=== PATIENT | female | born 1940 | race Caucasian/White ===

== ENCOUNTER 2020-10-30 13:59 | Outpatient (CLI) | payer MEDICARE, BC ==
[~2020-10-30 13:59] MED LIST: ALLO100T PO; ATEN50TA PO; LEVO50TA8 PO; LORA-258 PO; ZOLP10TA2 PO
[2020-10-30 14:53] LABS: BASOPHILS # (AUTO) 0.1 /CMM (0.0-0.2); EOSINOPHILS % (AUTO) 9.3 % (0.0-6.0); HEMATOCRIT 39 % (33-45); HEMOGLOBIN 12.9 g/dL (11.5-14.8); LYMPHOCYTES # (AUTO) 2.3 /CMM (0.8-4.8); LYMPHOCYTES % (AUTO) 23.2 % (20.0-44.0); MEAN CORPUSCULAR HGB CONC 33 g/dl (31.0-36.0); MEAN CORPUSCULAR VOLUME 89 fL (82-100); MONOCYTES # (AUTO) 0.8 /CMM (0.1-1.30); MONOCYTES % (AUTO) 8.6 % (2.0-12.0); NEUTROPHILS # (AUTO) 5.7 /CMM (1.8-8.9); NEUTROPHILS % (AUTO) 57.9 % (43.0-81.0); PLATELET COUNT (AUTO) 302 /CMM (150-450); RED BLOOD CELL COUNT(AUTO) 4.41 MIL/uL (4.0-5.2); WHITE BLOOD COUNT (AUTO) 9.9 K/uL (4.3-11.0)
[2020-10-30 15:05] LABS: ALANINE AMINOTRANSFERASE 18 U/L (12-78); ALBUMIN 3.9 g/dL (3.4-5.0); ALKALINE PHOSPHATASE 94 U/L (46-116); ASPARTATE AMINOTRANSFERASE 24 U/L (15-37); BILIRUBIN,TOTAL 0.4 mg/dL (0.2-1.0); CALCIUM, SERUM 8.7 mg/dL (8.5-10.1); CARBON DIOXIDE 25 mmol/L (21-32); CHLORIDE 105 mmol/L (98-107); CREATININE 2.3 mg/dL (0.6-1.3); GLUCOSE 105 mg/dL (74-106); SODIUM SERUM 142 mmol/L (136-145); TOTAL PROTEIN, SERUM 7.8 g/dL (6.4-8.2); UREA NITROGEN, BLOOD 30 mg/dL (7-18)
[2020-10-31 10:08] LABS: IMMUNOGLOBULIN A, SERUM 280 mg/dL (64-422); IMMUNOGLOBULIN G, SERUM 1118 mg/dL (586-1602); IMMUNOGLOBULIN M, SERUM 235 mg/dL (26-217)
== END 2020-10-30 23:59 | disposition home or self-care (01) ==
LOC: LAB 13:59
PROVIDERS: ATTEND Internal Medicine Hematology & Oncology
DX: D72.829 Elevated white blood cell count, unspecified (principal); D47.2 Monoclonal gammopathy
CPT/HCPCS: 36415; 80053-TC; 82232; 82784; 84155; 84165; 85025-TC; 86334

== ENCOUNTER 2020-11-03 11:07 | Outpatient (CLI) | payer MEDICARE, BC | END 2020-11-03 23:59 | disposition home or self-care (01) | LOC: CT 11:07 | PROVIDERS: ATTEND Internal Medicine Hematology & Oncology | DX: I25.10 Atherosclerotic heart disease of native coronary artery without angina pectoris (principal); R91.1 Solitary pulmonary nodule; I70.0 Atherosclerosis of aorta; N28.1 Cyst of kidney, acquired; F17.200 Nicotine dependence, unspecified, uncomplicated; M47.814 Spondylosis without myelopathy or radiculopathy, thoracic region | CPT/HCPCS: 71250-TC ==

== ENCOUNTER 2021-08-11 23:01 | Inpatient (IN) | payer MEDICARE, BC ==
[~2021-08-11] VITALS: Ht 154.9 cm; Wt 52.6 kg
[2021-08-11] MEDS ORDERED: ACETAMINOPHEN 325 MG TABLET ONE (23:34)
--- NOTE | 2021-08-11 23:35 | NUR ---
ASHER C/O GLF TRIPPED AND LANDED ON RIGHT SIDE. C/O HIP PAIN AND LEFT LEG PAIN. -KO. PT ABLE TO BARE WEIGHT AND NO SHORTENING OF LOWER EXTREMITIES. PT CHANGED INTO A GOWN AN NO GROSS TRAUMA NOTED. CERVICAL COLLAR APPLIED AND PLACED ON MONITOR AND PULSE OX.
--- NOTE | 2021-08-11 23:38 | NUR ---
PT TRANSPORTED TO CT SCAN VIA [facility]
[2021-08-12] MEDS ORDERED: ACETAMINOPHEN 325 MG TABLET PO ONE
--- NOTE | 2021-08-12 00:59 | NUR ---
CASTING AND CURING OPERATOR AT PT'S BEDSIDE
[2021-08-12] MEDS ORDERED: MORPHINE SULFATE INJ 2 MG/ML DISP.SYRIN IV ONE (01:00)
[2021-08-12] MEDS ORDERED: MORPHINE SULFATE INJ 2 MG/ML DISP.SYRIN ONE (01:19)
--- NOTE | 2021-08-12 01:20 | NUR ---
20G IV LINE ESTABLSIHED AT . BLOOD DRAWN AND SENT TO LAB.
--- NOTE | 2021-08-12 01:27 | NUR ---
COVID ANTIGEN SWAB COLLECTED AND SENT TO LAB
[2021-08-12] MEDS ORDERED: IV NS 0.9% 1,000 ML BAG IV ONE (01:30)
[2021-08-12 01:39] LABS: BASOPHILS # (AUTO) 0.1 K/uL (0.0-0.2); BASOPHILS % (AUTO) 0.7 % (0.0-2.0); EOSINOPHILS % (AUTO) 0.1 % (0.0-6.0); HEMATOCRIT 39 % (33-45); HEMOGLOBIN 12.8 g/dL (11.5-14.8); LYMPHOCYTES # (AUTO) 0.4 K/uL (0.8-4.8); LYMPHOCYTES % (AUTO) 2.1 % (20.0-44.0); MEAN CORPUSCULAR HGB CONC 33 g/dl (31.0-36.0); MEAN CORPUSCULAR VOLUME 89 fL (82-100); MONOCYTES # (AUTO) 1.2 K/uL (0.1-1.30); MONOCYTES % (AUTO) 6.2 % (2.0-12.0); NEUTROPHILS # (AUTO) 17.5 K/uL (1.8-8.9); NEUTROPHILS % (AUTO) 90.9 % (43.0-81.0); PLATELET COUNT (AUTO) 207 K/uL (150-450); RED BLOOD CELL COUNT(AUTO) 4.36 MIL/uL (4.0-5.2); WHITE BLOOD COUNT (AUTO) 19.3 K/uL (4.3-11.0)
--- NOTE | 2021-08-12 01:43 | NUR ---
ANGELITA HAUSER (SON)
[2021-08-12 01:53] LABS: CALCIUM, SERUM 9.3 mg/dL (8.5-10.1); CARBON DIOXIDE 18 mmol/L (21-32); CHLORIDE 99 mmol/L (98-107); CREATININE 3.5 mg/dL (0.6-1.3); GLUCOSE 118 mg/dL (74-106); POTASSIUM 3.9 mmol/L (3.5-5.1); SODIUM SERUM 133 mmol/L (136-145); UREA NITROGEN, BLOOD 43 mg/dL (7-18)
--- NOTE | 2021-08-12 02:06 | NUR ---
URINE COLLECTED AND SENT TO LAB
[2021-08-12 02:23] LABS: BILIRUBIN,URINE SMALL (NEGATIVE); COLOR,URINE YELLOW (YELLOW); LEUKOCYTE ESTERASE ,URINE NEGATIVE (NEGATIVE); NITRITE, URINE NEGATIVE (NEGATIVE); PROTEIN,URINE >=300 mg/dl (NEGATIVE); UGLUCOSE NEGATIVE (NEGATIVE); UROBILINOGEN,URINE 0.2 EU/dL (0.2)
--- NOTE | 2021-08-12 04:15 | NUR ---
[facility] PAGED
--- NOTE | 2021-08-12 04:21 | NUR ---
MOVE SHEET SUBMITTED
--- NOTE | 2021-08-12 04:36 | NUR ---
REPORT GIVEN TO ELISE
[2021-08-12 04:45] VITALS: BP 109/69
--- NOTE | 2021-08-12 04:45 | NUR ---
LICENSING AND REGISTRATION DIRECTOR NOTES: RECEIVED REPORT FROM [facility] ER NURSE. PT ADMITTED FROM ER UNDER SERVICE OF DR. CONCHA HERNANDEZ. DIAGNOSIS OF ACUTE LEFT HIP FRACTURE. PT AWAKE, ALERT/ORIENTED X4 AND VERBALLY RESPONSIVE. ON O2 2L/MIN VIA N/C, O2 SAT 96% AND PT TOLERATED WELL. IV ACCESS ON LT FOREARM#20G INTACT AND PATENT. NO S/S OF INFILTRATIONS. BODY ASSESSMENT DONE. NOTED REDNESS ON RT GROIN AREA AND SACRAL AREA. ALSO NOTED REDNESS ON BACK OF THE HEAD. NO OPEN SKIN NOTED. NO C/O PAIN OR DISCOMFORT. NO ACUTE DISTRESS. TYLENOL AND MORPHINE GIVEN AT THE ER. PROVIDED GOOD SKIN AND PERINEAL CARE. KEPT CLEAN, DRY AND COMFORTABLE. ALL SAFETY MEASURE IN PLACE. BED IN LOW POSITION AND LOCKED. BED ALARM ON. SIDE RAILS UP X2, PLACE CALL LIGHT WITH IN REACH. WILL CONTINUE TO MONITOR
--- NOTE | 2021-08-12 04:50 | NUR ---
PT TRANSPORTED TO ROOM 113 VIA [facility] WITHOUT INCIDENT.
--- NOTE | 2021-08-12 04:57 | NUR ---
[facility] ON PHONE CALL WITH LATOYA REYNOSO
[2021-08-12] MEDS ORDERED: ONDANSETRON HCL/PF 4 MG/2 ML VIAL IVP PRN (05:00)
[2021-08-12] MEDS ORDERED: Z GUARD REMEDY 4 OZ OINT TP PRN (05:00)
[2021-08-12] MEDS ORDERED: ACETAMINOPHEN 650 MG/SUPP.RECT RC PRN (05:00)
[2021-08-12] MEDS ORDERED: IV NS 0.9% 1,000 ML IV PRN (05:00)
--- NOTE | 2021-08-12 07:25 | NUR ---
ms rn received pt on bed, awake,alert,oriented x4,s/p fall w/ left hip fx, denies pain at this time, repositioned for comfort,all needs attended.
[2021-08-12 08:51] LABS: RBC,URINE 0-3 /HPF (0-2)
[2021-08-12 08:52] LABS: WBC,URINE 0-2 /HPF (0-3)
[2021-08-12 08:53] LABS: BACTERIA,URINE Rare /HPF (None Seen); SQUAMOUS EPITHELIAL CELL,UR None Seen /HPF (None Seen)
[2021-08-12] MEDS: ATENOLOL 50 MG TABLET PO SCH (09:00)
--- NOTE | 2021-08-12 09:10 | NUR ---
ms rn received from lab a high level procalcitonin, aware w/ orders.
--- NOTE | 2021-08-12 09:50 | NUR ---
ms cassia due meds given, started on atb iv.
[2021-08-12] MEDS: ALLOPURINOL 100 MG TABLET PO SCH (10:31)
[2021-08-12] MEDS: LEVOTHYROXINE SODIUM 50 MCG TABLET PO SCH (10:31)
[2021-08-12] MEDS: PANTOPRAZOLE 40 MG VIAL IV SCH (10:31)
[2021-08-12] MEDS ORDERED: MEPERIDINE25 MG SYR 25 MG/ML VIAL IV STA (10:40)
[2021-08-12] MEDS ORDERED: VANCOMYCIN HCL 1 GM in IV D5W 260 ML IV ONE (11:00)
--- NOTE | 2021-08-12 11:00 | NUR ---
ms rn was given tylenol but patient vomited, zofran iv given.
[2021-08-12] MEDS: IV LR 1000 ML 1,000 ML IV PRN (11:03)
[2021-08-12 12:00] VITALS: BP 91/58
[2021-08-12] MEDS ORDERED: CEFEPIME 2 GM in IV D5W 100 ML IV ONE (12:00)
--- NOTE | 2021-08-12 12:00 | NUR ---
ms cassia was seen by ortho w/ orders made and carried out.
--- NOTE | 2021-08-12 12:35 | NUR ---
ms antony was seen again by collinw/ emma.
[2021-08-12] MEDS: ACETAMINOPHEN 325 MG TABLET PO PRN ×2 (13:01→19:37)
[2021-08-12] MEDS: HEPARIN SODIUM, PORCINE 5000 UNITS/1 ML VIAL SQ SCH ×2 (13:07→21:43)
--- NOTE | 2021-08-12 13:20 | NUR ---
ms rn was seen by edwina polanco at this time.
--- NOTE | 2021-08-12 15:00 | NUR ---
ms rn 2 sons at bedside, was able to speak w/ collin aminta.
[2021-08-12 15:25] LABS: BAND % (MANUAL) 6 % (0.0-5.0); LYMPHOCYTES % (MANUAL) 6 % (16-48); MONOCYTES % (MANUAL) 5 % (0-11.0)
--- NOTE | 2021-08-12 15:40 | NUR ---
ms rn temp went down to 99 at this time, patient sleeping.
[2021-08-12 16:00] VITALS: BP 123/56
[2021-08-12 17:03] LABS: NEUTROPHILS % (MANUAL) 83 (42-76)
--- NOTE | 2021-08-12 17:30 | NUR ---
ms rn temp up again to 102, will give cooling measures, and tylenol.
--- NOTE | 2021-08-12 18:30 | NUR ---
ms rn on bed, no distress noted,all needs attended.
[2021-08-12] MEDS ORDERED: IBUPROFEN 400 MG TABLET PO PRN (19:00)
--- NOTE | 2021-08-12 19:48 | NUR ---
JOANA/RN PATIENT IS AWAKE, ALERT, AND ORIENTED, SHAKING NOTED, TEMP 103.0, TYLENOL 650 MG AND MOTRIN 1 TAB PO WERE GIVEN PER DAY SHIFT RN ROSINA'S ENDORSEMENT. COOLING MEASURES STARTED. FALL PRECAUTIONS PER PROTOCOL INSTITUTED. WILL MONITOR.
[2021-08-12 20:00] VITALS: BP 144/72
--- NOTE | 2021-08-12 23:14 | NUR ---
JOANA/TELE TEMP 98.2. INTERVENTION EFFECTIVE. WILL CONTINUE TO MONITOR TEMPERATURE.
[2021-08-13] MEDS: IV LR 1000 ML 1,000 ML IV PRN ×3 (00:42→21:42)
[2021-08-13] MEDS: ZOLPIDEM TARTRATE 10 MG TABLET PO PRN (01:41)
[2021-08-13 04:00] VITALS: BP 89/46
--- NOTE | 2021-08-13 04:40 | NUR ---
JOANA/RN AT 0430, BP 89/46, PATIENT IS ASYMPTOMATIC. ELEVATED FOOT OF BED, NOTIFIED LALITA KERN, PER CONCHA, RECHECK BP IN ONE HOUR. NO OTHER ORDER RECEIVED. WILL RECHECK BP IN ONE HOUR.
--- NOTE | 2021-08-13 06:06 | NUR ---
JOANA/RN BP 83/43, ASYMPTOMATIC, CONCHA HERNANDEZ NP, NOTIFIED, ORDER OF LR 500 MLS BOLUS WAS RECEIVED.
--- NOTE | 2021-08-13 06:22 | NUR ---
JOANA/RN LR 500 MLS BOLUS STARTED. WILL MONITOR.
[2021-08-13 06:25] LABS: BILIRUBIN,URINE NEGATIVE (NEGATIVE); COLOR,URINE YELLOW (YELLOW); LEUKOCYTE ESTERASE ,URINE NEGATIVE (NEGATIVE); NITRITE, URINE NEGATIVE (NEGATIVE); PROTEIN,URINE 100 mg/dl (NEGATIVE); UGLUCOSE NEGATIVE (NEGATIVE); UROBILINOGEN,URINE 0.2 EU/dL (0.2)
--- NOTE | 2021-08-13 06:28 | NUR ---
JOANA/RN PATIENT SLEEPING, EASILY AROUSABLE, APPEARS COMFORTABLE, NO DISTRESS NOTED, LR 500 MLS BOLUS INFUSING, CALL LIGHT IN REACH, WILL CONTINUE TO MONITOR.
[2021-08-13] MEDS ORDERED: IV LR 500 ML IV ONE (06:30)
[2021-08-13 06:51] LABS: CREATININE, URINE 102.1 MG/DL (30.0-125.0); URINE TOTAL PROTEIN 185.6 mg/dL (0-11.9)
[2021-08-13 06:53] LABS: BASOPHILS % (AUTO) 0.2 % (0.0-2.0); HEMATOCRIT 31 % (33-45); HEMOGLOBIN 10.1 g/dL (11.5-14.8); LYMPHOCYTES # (AUTO) 0.4 K/uL (0.8-4.8); MEAN CORPUSCULAR HGB CONC 33 g/dl (31.0-36.0); MEAN CORPUSCULAR VOLUME 91 fL (82-100); MONOCYTES # (AUTO) 0.9 K/uL (0.1-1.30); MONOCYTES % (AUTO) 6.3 % (2.0-12.0); NEUTROPHILS # (AUTO) 12.7 K/uL (1.8-8.9); NEUTROPHILS % (AUTO) 90.5 % (43.0-81.0); PLATELET COUNT (AUTO) 160 K/uL (150-450); RED BLOOD CELL COUNT(AUTO) 3.41 MIL/uL (4.0-5.2); WHITE BLOOD COUNT (AUTO) 14.1 K/uL (4.3-11.0)
--- NOTE | 2021-08-13 07:00 | NUR ---
JOANA/RN LR 500 MLS BOLUS FINISHED, BP 90/53. NO CHANGE IN CONDITION, ALL NEEDS ATTENDED AT THIS TIME, WILL CONTINUE TO MONITOR AND WILL ENDORSE.
[2021-08-13 07:02] VITALS: BP 90/57
[2021-08-13 07:13] LABS: ALANINE AMINOTRANSFERASE 22 U/L (12-78); ALBUMIN 2.1 g/dL (3.4-5.0); ALKALINE PHOSPHATASE 82 U/L (46-116); ASPARTATE AMINOTRANSFERASE 60 U/L (15-37); CALCIUM, SERUM 8.2 mg/dL (8.5-10.1); CARBON DIOXIDE 19 mmol/L (21-32); CHLORIDE 105 mmol/L (98-107); CREATININE 3.7 mg/dL (0.6-1.3); GLUCOSE 118 mg/dL (74-106); MAGNESIUM 1.7 mg/dL (1.8-2.4); PHOSPHORUS 5.4 mg/dL (2.5-4.9); POTASSIUM 3.6 mmol/L (3.5-5.1); SODIUM SERUM 135 mmol/L (136-145); UREA NITROGEN, BLOOD 54 mg/dL (7-18)
--- NOTE | 2021-08-13 07:30 | NUR ---
MS RN OPENING NOTES RECEIVED PATIENT ON BED AWAKE AND A/O X4. ON O2 AT 2LPM VIA NASAL CANNULA TOLERATING WELL. NO SOB NOTED. NOT IN DISTRESS. WITH NO COMPLAINTS OF PAIN OR DISCOMFORT AT THIS TIME. WITH IV ACCESS AT RIGHT FOREARM G22 WITH LR AT 100ML/HR INFUSING WELL. IV SITE IN PATENT AND INTACT. SAFETY MEASURES IN PLACED. CALL LIGHT WITHIN REACH. BED ON LOWEST LOCKED POSITION, SIDE RAILS UP X2. WILL CONTINUE TO MONITOR.
[2021-08-13] MEDS: ATENOLOL 50 MG TABLET PO SCH (08:00)
[2021-08-13] MEDS: ALLOPURINOL 100 MG TABLET PO SCH (08:01)
[2021-08-13] MEDS: PANTOPRAZOLE 40 MG VIAL IV SCH (08:01)
[2021-08-13] MEDS: LEVOTHYROXINE SODIUM 50 MCG TABLET PO SCH (08:01)
[2021-08-13] MEDS: HEPARIN SODIUM, PORCINE 5000 UNITS/1 ML VIAL SQ SCH ×2 (08:02→20:40)
[2021-08-13 09:23] LABS: BACTERIA,URINE Few /HPF (None Seen); RBC,URINE 0-2 /HPF (0-2); SQUAMOUS EPITHELIAL CELL,UR Few /HPF (None Seen); WBC,URINE 0-2 /HPF (0-3)
[2021-08-13] MEDS: Magnesium 1GM/D5W 100ML PREMIX 100 ML IV SCH ×2 (09:51→11:00)
[2021-08-13 09:54] LABS: EOSINOPHIL,URINE None Seen
[2021-08-13 10:02] LABS: THYROID STIMULATING HORMONE 1.251 uIU/mL (0.358-3.74)
[2021-08-13] MEDS ORDERED: VANCOMYCIN 500 MG in IV D5W 100 ML IV PRN (11:00)
[2021-08-13 12:00] VITALS: BP 84/49
[2021-08-13] MEDS: CEFEPIME 1 GM in IV D5W 50 ML IV SCH (12:09)
[2021-08-13] MEDS: VANCOMYCIN 500 MG in IV D5W 100 ML IV SCH (14:57)
[2021-08-13] MEDS: ENSURE ENLIVE 237 ML LIQUID (VANILLA) PO SCH (16:12)
--- NOTE | 2021-08-13 18:24 | NUR ---
MS RN CLOSING NOTES PATIENT ON BED AWAKE AND A/O X4. ON O2 AT 2LPM VIA NASAL CANNULA TOLERATING WELL. NO SOB NOTED. NOT IN DISTRESS. WITH NO COMPLAINTS OF PAIN OR DISCOMFORT AT THIS TIME. WITH IV ACCESS AT RIGHT FOREARM G22 WITH LR AT 100ML/HR INFUSING WELL. IV SITE IN PATENT AND INTACT. DUE MEDS GIVEN. SAFETY MEASURES IN PLACED. CALL LIGHT WITHIN REACH. BED ON LOWEST LOCKED POSITION, SIDE RAILS UP X2. WILL ENDORSE TO NEXT SHIFT FOR ANJANA.
[2021-08-13 20:00] VITALS: BP 106/51
[2021-08-13 21:00] VITALS: BP 84/49
[2021-08-14 04:00] VITALS: BP 120/65
[2021-08-14 06:38] LABS: BASOPHILS % (AUTO) 0.1 % (0.0-2.0); EOSINOPHILS % (AUTO) 0.1 % (0.0-6.0); HEMATOCRIT 32 % (33-45); HEMOGLOBIN 10.7 g/dL (11.5-14.8); LYMPHOCYTES # (AUTO) 0.4 K/uL (0.8-4.8); LYMPHOCYTES % (AUTO) 3.8 % (20.0-44.0); MEAN CORPUSCULAR HGB CONC 33 g/dl (31.0-36.0); MEAN CORPUSCULAR VOLUME 90 fL (82-100); MONOCYTES # (AUTO) 0.5 K/uL (0.1-1.30); MONOCYTES % (AUTO) 4.7 % (2.0-12.0); NEUTROPHILS # (AUTO) 10.5 K/uL (1.8-8.9); NEUTROPHILS % (AUTO) 91.3 % (43.0-81.0); PLATELET COUNT (AUTO) 182 K/uL (150-450); WHITE BLOOD COUNT (AUTO) 11.5 K/uL (4.3-11.0)
[2021-08-14 07:07] LABS: CALCIUM, SERUM 8.2 mg/dL (8.5-10.1); CARBON DIOXIDE 20 mmol/L (21-32); CHLORIDE 103 mmol/L (98-107); CREATININE 3.5 mg/dL (0.6-1.3); GLUCOSE 100 mg/dL (74-106); MAGNESIUM 2.4 mg/dL (1.8-2.4); PHOSPHORUS 3.3 mg/dL (2.5-4.9); POTASSIUM 3.3 mmol/L (3.5-5.1); SODIUM SERUM 135 mmol/L (136-145); UREA NITROGEN, BLOOD 50 mg/dL (7-18)
[2021-08-14 08:00] VITALS: BP 116/60
[2021-08-14] MEDS: LEVOTHYROXINE SODIUM 50 MCG TABLET PO SCH (09:05)
[2021-08-14] MEDS: PANTOPRAZOLE 40 MG TABLET.DR PO SCH (09:05)
[2021-08-14] MEDS: ALLOPURINOL 100 MG TABLET PO SCH (09:05)
[2021-08-14] MEDS: ATENOLOL 50 MG TABLET PO SCH (09:06)
[2021-08-14] MEDS: HEPARIN SODIUM, PORCINE 5000 UNITS/1 ML VIAL SQ SCH ×2 (09:08→21:29)
[2021-08-14] MEDS: ENSURE ENLIVE 237 ML LIQUID (VANILLA) PO SCH ×2 (09:16→17:46)
[2021-08-14] MEDS: IV LR 1000 ML 1,000 ML IV PRN (10:35)
[2021-08-14] MEDS: CEFEPIME 1 GM in IV D5W 50 ML IV SCH (11:49)
[2021-08-14 12:00] VITALS: BP 116/60
[2021-08-14] MEDS: ACETAMINOPHEN 325 MG TABLET PO PRN (15:21)
--- NOTE | 2021-08-14 18:02 | NUR ---
RN NOTE PATIENT RESTING ON BED. A/O X4. ON O2 AT 2LPM VIA NASAL CANNULA TOLERATING WELL. ACCESS AT RIGHT FOREARM G22 WITH IVF LR AT 100ML/HR INFUSING WELL. IV SITE IN PATENT AND INTACT. ALL DUE MEDS GIVEN. SAFETY MEASURES IN PLACED. NEEDS MET AND ATTENDED.
--- NOTE | 2021-08-14 19:10 | NUR ---
RN NOTES RECEIVED REPORT FROM MORNING RN PATIENT IN BED A/O X4 ABLE TO MAKE NEEDS KNOWN. WITH IV ACCESS R FA #[id number] PATENT FLUSHES WELL. WITH ONGOING IVF LR 100CC/HR. WITH OXYGEN INHALATION AT 2 LPM VIA NASAL CANULA TOLERATING WELL SATING 92% NO DESATURATION NOTED AT THIS TIME. ALL DUE MEDS GIVEN ORDERED. HOB ELEVATED. BED ON LOWEST POSITION AND LOCKED. CALL LIGHT WITHIN REACH. WILL CONTINUE TO MONITOR
[2021-08-14 20:00] VITALS: BP 100/52
[2021-08-15] MEDS: VANCOMYCIN 500 MG in IV D5W 100 ML IV SCH (03:06)
[2021-08-15] MEDS: IV LR 1000 ML 1,000 ML IV PRN ×2 (03:06→17:40)
[2021-08-15 04:00] VITALS: BP 124/68
[2021-08-15 06:06] LABS: BASOPHILS % (AUTO) 0.1 % (0.0-2.0); EOSINOPHILS % (AUTO) 0.7 % (0.0-6.0); HEMATOCRIT 30 % (33-45); LYMPHOCYTES # (AUTO) 0.4 K/uL (0.8-4.8); LYMPHOCYTES % (AUTO) 3.9 % (20.0-44.0); MEAN CORPUSCULAR HGB CONC 33 g/dl (31.0-36.0); MEAN CORPUSCULAR VOLUME 90 fL (82-100); MONOCYTES # (AUTO) 0.5 K/uL (0.1-1.30); MONOCYTES % (AUTO) 4.7 % (2.0-12.0); NEUTROPHILS # (AUTO) 9.6 K/uL (1.8-8.9); NEUTROPHILS % (AUTO) 90.6 % (43.0-81.0); PLATELET COUNT (AUTO) 194 K/uL (150-450); RED BLOOD CELL COUNT(AUTO) 3.36 MIL/uL (4.0-5.2); WHITE BLOOD COUNT (AUTO) 10.6 K/uL (4.3-11.0)
[2021-08-15 06:39] LABS: CALCIUM, SERUM 8.4 mg/dL (8.5-10.1); CARBON DIOXIDE 24 mmol/L (21-32); CHLORIDE 103 mmol/L (98-107); CREATININE 3.3 mg/dL (0.6-1.3); GLUCOSE 96 mg/dL (74-106); PHOSPHORUS 4.1 mg/dL (2.5-4.9); POTASSIUM 3.5 mmol/L (3.5-5.1); SODIUM SERUM 135 mmol/L (136-145); UREA NITROGEN, BLOOD 52 mg/dL (7-18)
--- NOTE | 2021-08-15 07:18 | NUR ---
RN NOTES PATIENT RESTING ON BED. A/O X4. ON O2 AT 2LPM VIA NASAL CANNULA TOLERATING WELL. ACCESS AT RIGHT FOREARM G22 WITH IVF LR AT 100ML/HR INFUSING WELL. IV SITE IN PATENT AND INTACT. ALL DUE MEDS GIVEN. SAFETY MEASURES IN PLACED. NEEDS MET AND ATTENDED.
--- NOTE | 2021-08-15 07:55 | NUR ---
RN NOTE PATIENT RECEIVED RESTING ON BED. A/O X4. ON O2 AT 2LPM VIA NASAL CANNULA TOLERATING WELL. ACCESS AT RIGHT FOREARM G22 WITH IVF LR AT 100ML/HR INFUSING WELL. IV SITE IN PATENT AND INTACT. ALL DUE MEDS GIVEN. SAFETY MEASURES IN PLACED. NEEDS MET AND ATTENDED.
[2021-08-15] MEDS: ALLOPURINOL 100 MG TABLET PO SCH (08:22)
[2021-08-15] MEDS: PANTOPRAZOLE 40 MG TABLET.DR PO SCH (08:22)
[2021-08-15] MEDS: LEVOTHYROXINE SODIUM 50 MCG TABLET PO SCH (08:22)
[2021-08-15] MEDS: ATENOLOL 50 MG TABLET PO SCH (08:23)
[2021-08-15] MEDS: HEPARIN SODIUM, PORCINE 5000 UNITS/1 ML VIAL SQ SCH ×2 (08:25→21:34)
[2021-08-15] MEDS: ENSURE ENLIVE 237 ML LIQUID (VANILLA) PO SCH ×2 (10:03→17:31)
[2021-08-15] MEDS: CEFEPIME 1 GM in IV D5W 50 ML IV SCH (11:55)
[2021-08-15 12:00] VITALS: BP 111/56
[2021-08-15 20:00] VITALS: BP 134/73
--- NOTE | 2021-08-15 20:05 | NUR ---
RN NOTE PATIENT RESTING ON BED. A/O X4. ON O2 AT 2LPM VIA NASAL CANNULA TOLERATING WELL. ACCESS AT L HAND G22 IN PLACE AND PATENT. ALEXYS MIDLINE G18 WITH IVF LR AT 100ML/HR INFUSING WELL. ALL DUE MEDS GIVEN. SAFETY MEASURES IN PLACED. NEEDS MET AND ATTENDED.
--- NOTE | 2021-08-15 20:29 | NUR ---
RN OPENING NOTES: RECEIVED PATIENT SLEEP IN BED COMFORTABLY, BED IN LOW POSITION, CALL LIGHTS WITHIN REACH, NO COMPLAIN OF PAIN AND DISCOMFORT AT THIS TIME, ON NASAL CANNULA AT 2LPM, PATIENT WITH IV LINE AT LEFT HAND #22 WITH ONGOING LR@100ML PER HOUR INFUSING WELL, PATIENT KEPT CLEAN AND DRY ALL NEEDS MET WILL CONTINUE TO MONITOR.
[2021-08-15] MEDS: ZOLPIDEM TARTRATE 10 MG TABLET PO PRN (21:35)
[2021-08-16 04:00] VITALS: BP 113/56
[2021-08-16 06:24] LABS: BASOPHILS % (AUTO) 0.1 % (0.0-2.0); EOSINOPHILS % (AUTO) 1.4 % (0.0-6.0); HEMATOCRIT 30 % (33-45); HEMOGLOBIN 9.9 g/dL (11.5-14.8); LYMPHOCYTES # (AUTO) 0.4 K/uL (0.8-4.8); LYMPHOCYTES % (AUTO) 4.3 % (20.0-44.0); MEAN CORPUSCULAR HGB CONC 33 g/dl (31.0-36.0); MEAN CORPUSCULAR VOLUME 90 fL (82-100); MONOCYTES # (AUTO) 0.8 K/uL (0.1-1.30); MONOCYTES % (AUTO) 9.1 % (2.0-12.0); NEUTROPHILS # (AUTO) 7.8 K/uL (1.8-8.9); NEUTROPHILS % (AUTO) 85.1 % (43.0-81.0); PLATELET COUNT (AUTO) 212 K/uL (150-450); RED BLOOD CELL COUNT(AUTO) 3.36 MIL/uL (4.0-5.2); WHITE BLOOD COUNT (AUTO) 9.2 K/uL (4.3-11.0)
--- NOTE | 2021-08-16 06:59 | NUR ---
MS RN CLOSING NOTES: PATIENT SLEEP IN BED COMFORTABLY AROUSABLE TO VERBAL STIMULI, BED IN LOW POSITION, CALL LIGHTS WITHIN REACH, NO COMPLAIN OF PAIN AND DISCOMFORT AT THIS TIME, A/OX3-4 ABLE TO MAKE NEEDS KNOWN, NO FEVER WAS OBSERVED THE WHOLE SHIFT, PATIENT KEPT CLEAN AND DRY ALL NEEDS MET ENDORSE TO INCOMING SHIFT.
[2021-08-16 07:36] LABS: CALCIUM, SERUM 8.2 mg/dL (8.5-10.1); CARBON DIOXIDE 21 mmol/L (21-32); CHLORIDE 106 mmol/L (98-107); CREATININE 2.9 mg/dL (0.6-1.3); GLUCOSE 87 mg/dL (74-106); MAGNESIUM 1.7 mg/dL (1.8-2.4); PHOSPHORUS 3.5 mg/dL (2.5-4.9); SODIUM SERUM 138 mmol/L (136-145); UREA NITROGEN, BLOOD 53 mg/dL (7-18)
--- NOTE | 2021-08-16 08:00 | NUR ---
patient recieved in room awake and alert oriented x4, resp unlabored no distress noted. hx of fall and left hip fx plan to have surgery when stable iv infusing well with no signs of redness or swelling noted will continue to assess and evaluate call light with in reach
[2021-08-16] MEDS: ATENOLOL 50 MG TABLET PO SCH (09:00)
[2021-08-16] MEDS: PANTOPRAZOLE 40 MG TABLET.DR PO SCH (09:29)
[2021-08-16] MEDS ORDERED: Magnesium 1GM/D5W 100ML PREMIX 100 ML IV SCH (09:30)
[2021-08-16] MEDS: ALLOPURINOL 100 MG TABLET PO SCH (09:30)
[2021-08-16] MEDS ORDERED: POTASSIUM CL. PREMIX PERIPHER. 50 ML IV SCH (09:30)
[2021-08-16] MEDS: LEVOTHYROXINE SODIUM 50 MCG TABLET PO SCH (09:30)
[2021-08-16] MEDS: HEPARIN SODIUM, PORCINE 5000 UNITS/1 ML VIAL SQ SCH ×2 (09:40→20:51)
[2021-08-16] MEDS: ENSURE ENLIVE 237 ML LIQUID (VANILLA) PO SCH ×2 (09:41→16:39)
[2021-08-16] MEDS ORDERED: MAGNESIUM OXIDE 400 MG TABLET PO ONE (10:00)
[2021-08-16] MEDS ORDERED: POTASSIUM CHLORIDE 20 MEQ TAB.PRT.SR PO ONE (10:00)
[2021-08-16 12:00] VITALS: BP 136/59
[2021-08-16] MEDS: IV LR 1000 ML 1,000 ML IV PRN (12:04)
[2021-08-16] MEDS: CEFEPIME 1 GM in IV D5W 50 ML IV SCH (12:25)
[2021-08-16] MEDS ORDERED: VANCOMYCIN 500 MG in IV D5W 100 ML IV SCH (17:00)
--- NOTE | 2021-08-16 19:10 | NUR ---
RN OPENING NOTES RECEIVED PATIENT ON BED, AWAKE, A/O X 4, ON NASAL CANULA @ 2LPM, RESPIRATORY EVEN AND UNLABORED, REMAIN AFEBRILE, NO S/S OF DISTRESS NOTED. PATIENT NOTED WITH ALEXYS MID LINE, LEFT HAND #22 PERIPHERAL LINE, INTACT IN PLACED, FLUSHED WITH NS. NO INFILTRATION NOTED AT SITE. RUNNING WITH LR 1L @ 100 ML/HR. ALL SAFETY PRECAUTION PROVIDED, BED IN LOWEST POSITION, LOCKED. CONTINUE TO MONITOR.
--- NOTE | 2021-08-16 19:21 | NUR ---
CHANGE OF SHIFT REPORT PT RESTING COMFORTABLY IN BED. NO S/S OR C/O PAIN OR DISTRESS NOTED. SIDE RAILS UP X2, CALL LIGHT LEFT WITHIN REACH. PT KEPT CLEAN, DRY, AND COMFORTABLE. REPORT GIVEN TO GARRICK LEAVITT.
[2021-08-16 20:00] VITALS: BP 130/85
[2021-08-16] MEDS: ZOLPIDEM TARTRATE 10 MG TABLET PO PRN (21:08)
[2021-08-17] MEDS: IV LR 1000 ML 1,000 ML IV PRN ×2 (00:19→11:44)
[2021-08-17 04:00] VITALS: BP 126/66
[2021-08-17 07:08] LABS: BASOPHILS % (AUTO) 0.2 % (0.0-2.0); HEMATOCRIT 30 % (33-45); HEMOGLOBIN 9.9 g/dL (11.5-14.8); LYMPHOCYTES # (AUTO) 0.5 K/uL (0.8-4.8); LYMPHOCYTES % (AUTO) 3.4 % (20.0-44.0); MEAN CORPUSCULAR HGB CONC 33 g/dl (31.0-36.0); MEAN CORPUSCULAR VOLUME 89 fL (82-100); MONOCYTES # (AUTO) 1.3 K/uL (0.1-1.30); NEUTROPHILS # (AUTO) 11.7 K/uL (1.8-8.9); NEUTROPHILS % (AUTO) 83.4 % (43.0-81.0); PLATELET COUNT (AUTO) 256 K/uL (150-450); RED BLOOD CELL COUNT(AUTO) 3.36 MIL/uL (4.0-5.2)
--- NOTE | 2021-08-17 07:18 | NUR ---
RN CLOSING NOTES PATIENT REMAIN STABLE THROUGH OUT THE SHIFT, RESPIRATORY EVEN AND UNLABORED, REMAIN AFEBRILE, NO S/S OF DISTRESS NOTED. RUNNING WITH LR 1L @ 100 ML/HR. ALL DUE MEDS GIVEN ORDERED. ALL SAFETY PRECAUTION PROVIDED, BED IN LOWEST POSITION, LOCKED. CONTINUE TO MONITOR.
[2021-08-17 07:29] LABS: CALCIUM, SERUM 8.1 mg/dL (8.5-10.1); CARBON DIOXIDE 22 mmol/L (21-32); CHLORIDE 106 mmol/L (98-107); CREATININE 2.6 mg/dL (0.6-1.3); GLUCOSE 95 mg/dL (74-106); MAGNESIUM 1.6 mg/dL (1.8-2.4); POTASSIUM 3.1 mmol/L (3.5-5.1); SODIUM SERUM 138 mmol/L (136-145); UREA NITROGEN, BLOOD 43 mg/dL (7-18)
--- NOTE | 2021-08-17 07:30 | NUR ---
RN OPENING NOTES RECEIVED PATIENT IN BED ALERT VERBALLY RESPONSIVE. NOT IN DISTRESS NO COMPLAINTS OF PAIN NOTED. O2 @ 2LPM VIA NC SATING 95%. IV SITE ALEXYS MIDLINE AND L HAND #22 PATENT AND INTACT. BED TO LOWEST POSITION AND LOCKED. CALL LIGHT WITHIN REACH.
[2021-08-17] MEDS: PANTOPRAZOLE 40 MG TABLET.DR PO SCH (08:34)
[2021-08-17] MEDS: LEVOTHYROXINE SODIUM 50 MCG TABLET PO SCH (08:34)
[2021-08-17] MEDS: ALLOPURINOL 100 MG TABLET PO SCH (08:34)
[2021-08-17] MEDS: ENSURE ENLIVE 237 ML LIQUID (VANILLA) PO SCH ×2 (08:34→16:12)
[2021-08-17] MEDS: ATENOLOL 50 MG TABLET PO SCH (08:45)
[2021-08-17] MEDS: HEPARIN SODIUM, PORCINE 5000 UNITS/1 ML VIAL SQ SCH ×2 (08:45→20:58)
[2021-08-17] MEDS: POTASSIUM CHLORIDE 20 MEQ TAB.PRT.SR PO SCH ×3 (10:06→12:48)
[2021-08-17] MEDS: Magnesium 1GM/D5W 100ML PREMIX 100 ML IV SCH ×2 (10:07→11:43)
[2021-08-17] MEDS: CEFEPIME 1 GM in IV D5W 50 ML IV SCH (12:48)
[2021-08-17 13:05] LABS: BAND % (MANUAL) 1 % (0.0-5.0); EOSINOPHILS % (MANUAL) 4 % (0-4); LYMPHOCYTES % (MANUAL) 3 % (16-48); MONOCYTES % (MANUAL) 14 % (0-11.0); NEUTROPHILS % (MANUAL) 78 (42-76)
--- NOTE | 2021-08-17 18:25 | NUR ---
RN CLOSING NOTES PATIENT IN BED. VERBALLY RESPONSIVE. NOT IN DISTRESS NO COMPLAINTS OF PAIN NOTED. PATIENT PLANNED FOR HIP SURGERY TOMORROW 07, CONSENT ON CHART. NPO AFTER 2330. TO HOLD ANTICOAGULANT MORNING OF SURGERY. BED TO LOWEST POSITION AND LOCKED. CALL LIGHT WITHIN REACH. NEEDS ATTENDED. WILL ENDORSE TO ENVIRONMENTAL ENGINEERING AIDE RN ON DUTY.
[2021-08-17 20:00] VITALS: BP 144/68
[2021-08-17] MEDS: ZOLPIDEM TARTRATE 10 MG TABLET PO PRN (20:59)
--- NOTE | 2021-08-17 23:30 | NUR ---
RN NOTES PATIENT START ON NPO.
[2021-08-18] VITALS (14 sets, daily range): BP systolic 120–150; BP diastolic 56–81
[2021-08-18] MEDS: IV LR 1000 ML 1,000 ML IV PRN ×3 (00:56→20:05)
[2021-08-18] MEDS ORDERED: POLYMYXIN B SULFATE 500,000 UNITS ONE (06:45)
[2021-08-18] MEDS ORDERED: BUPIVACAINE 0.5 % PF 150 MG/30 ML VIAL ONE (06:45)
--- NOTE | 2021-08-18 07:09 | NUR ---
RN CLOSING NOTES PATIENT REMAIN STABLE THROUGH OUT THE SHIFT, RESPIRATORY EVEN AND UNLABORED, REMAIN AFEBRILE, NO S/S OF DISTRESS NOTED. REMAIN NPO FOR SCHEDULED PROCEDURE. RUNNING WITH LR 1L @ 100 ML/HR. ALL DUE MEDS GIVEN ORDERED. ALL SAFETY PRECAUTION PROVIDED, BED IN LOWEST POSITION, LOCKED. CONTINUE TO MONITOR.
[2021-08-18] MEDS ORDERED: ROCURONIUM BROMIDE 50 MG/5 ML ONE (07:27)
[2021-08-18] MEDS ORDERED: HYDROMORPHONE INJ 2 MG/ML DISP.SYRIN ONE (07:27)
[2021-08-18] MEDS: LEVOTHYROXINE SODIUM 50 MCG TABLET PO SCH (07:30)
[2021-08-18] MEDS: PANTOPRAZOLE 40 MG TABLET.DR PO SCH (07:30)
[2021-08-18 07:33] LABS: CALCIUM, SERUM 8.1 mg/dL (8.5-10.1); CARBON DIOXIDE 21 mmol/L (21-32); CHLORIDE 107 mmol/L (98-107); CREATININE 2.2 mg/dL (0.6-1.3); GLUCOSE 85 mg/dL (74-106); POTASSIUM 3.9 mmol/L (3.5-5.1); SODIUM SERUM 137 mmol/L (136-145); UREA NITROGEN, BLOOD 34 mg/dL (7-18)
[2021-08-18] MEDS: ENSURE ENLIVE 237 ML LIQUID (VANILLA) PO SCH ×2 (08:00→17:00)
[2021-08-18] MEDS: ATENOLOL 50 MG TABLET PO SCH (08:00)
[2021-08-18] MEDS ORDERED: TRANEXAMIC ACID 3,000 MG in SODIUM CHLORIDE IRRIG SOLUTION 70 ML IR ONE (08:30)
[2021-08-18] MEDS: ALLOPURINOL 100 MG TABLET PO SCH (09:00)
[2021-08-18] MEDS ORDERED: ALBUTEROL FS 2.5 MG/3 ML VIAL.NEB ONE ×2 (09:05→09:23)
[2021-08-18] MEDS ORDERED: FUROSEMIDE 20 MG/2 ML VIAL ONE (09:23)
[2021-08-18 09:39] LABS: HEMOGLOBIN 10.8 g/dL (11.5-14.8)
--- NOTE | 2021-08-18 10:04 | NUR ---
RN NOTES PATIENT STILL IN RECOVERY ROOM. WILL MONITOR PATIENT AND GIVE MEDS ONCE PATIENT COMES BACK TO THE ROOM.
--- NOTE | 2021-08-18 10:10 | NUR ---
RN NOTE PT BIB OR TEAM, RN CALLED AND GAVE REPORT PRIOR TO ARRIVAL. PT WAS ON 15L O2 NRB AND PROMPTLY SWITCHED TO BI-PAP. ONCE IMPLEMENTED, PT SPO2 INCREASED FROM 70% TO 95%. PT IS LETHARGIC, STIRRING TO PAINFUL STIMULI. L UA ML IS PATIENT AND INTACT. RIOS CATH BELOW PT DRAINING BY GRAVITY. RN WILL MONITOR AND TREAT THROUGHOUT SHIFT. SAFETY MEASURES IN PLACE, BED LOCKED AND IN LOWEST POSITION, SIDE RAILS UPX2, CALL LIGHT WITHIN REACH, PT BED ALARM ARMED.
--- NOTE | 2021-08-18 10:20 | NUR ---
NURSES NOTES PO RX WAS HELD PRIOR TO SX DUE TO NPO STATUS. PT IS CURRENTLY ON BIPAP AND UNSTABLE
[2021-08-18] MEDS ORDERED: DOCUSATE SODIUM 250 MG CAPSULE PO PRN (10:30)
[2021-08-18] MEDS ORDERED: BISACODYL SUPP (10 MG) 10 MG/SUPP.RECT SUPP.RECT RC PRN (10:30)
[2021-08-18] MEDS ORDERED: ACETAMINOPHEN 325 MG TABLET PO PRN (10:30)
[2021-08-18] MEDS ORDERED: ONDANSETRON HCL/PF 4 MG/2 ML VIAL IVP PRN (10:30)
[2021-08-18] MEDS ORDERED: SENNOSIDES 8.6 MG TABLET PO PRN (10:30)
--- NOTE | 2021-08-18 10:37 | NUR ---
PT RECEIVED FROM OR PLACED INTO BIPAP TO SUPPORT HER BREATHING. BIPAP PARAMETERS BELOW PER DR. GARCIA: IPAP 15 EPAP 5 RATE 12 FIO2 100% BIPAP MACHINE IS PLUGGED INTO RED OUTLET WITH ALARMS ON AND FUNCTIONING. BVM @ BEDSIDE. Addendum: 08/18/21 at 1043 by ETIENNE TOUSSAINT RT Amended: Links added.
[2021-08-18] MEDS ORDERED: ENOXAPARIN SODIUM 30 MG/0.3 ML DISP.SYRIN SQ SCH (12:00)
[2021-08-18 12:07] LABS: ABG BASE EXCESS -7.8 mmol/L; ABG OXYGEN SATURATION 98.2 % (92.0-98.5); ABG PCO2 23.1 mmHg (35.0-45.0); ABG PH 7.426 (7.350-7.450); ABG PO2 123.4 mmHg (75.0-100.0); AaDO2 566.5 mmHg; COHb 0.3 % (0.5-1.5); MetHb 0.2 % (0.0-1.5); O2Hb 97.7 % (94.0-97.0); SITE, ABG Left Radial
[2021-08-18] MEDS: MORPHINE SULFATE INJ 2 MG/ML DISP.SYRIN IV PRN ×3 (12:17→22:56)
--- NOTE | 2021-08-18 12:23 | NUR ---
pt. is more awake and follow commands, placed into simple mask @ 6 lpm o2 flow. spo2 98% hr 70 bpm rr 24 bpm Addendum: 08/18/21 at 1225 by ETIENNE TOUSSAINT RT Amended: Links added.
[2021-08-18] MEDS: CEFEPIME 1 GM in IV D5W 50 ML IV SCH (12:24)
--- NOTE | 2021-08-18 13:40 | NUR ---
RN NOTE US GUIDED THORACENTESIS COMPLETE. 550 ML DRAWN.
[2021-08-18] MEDS: NYSTATIN CREAM 15 GM TUBE TP SCH ×2 (16:35→17:26)
[2021-08-18] MEDS: ANCEF 1 GM/50 ML D5W IV SCH ×4 (16:35→23:24)
--- NOTE | 2021-08-18 19:05 | NUR ---
RECEIVED PT ON BED LITTLE DROWSY BUT SHE OPEN EYES AND ANSWER QUESTIONS, A/O X3-4 NO PAIN COMPLAINT AT THIS TIME S/P LEFT HIP ORIF 08/18, S/P THORACENTESIS 550ML OUT 08/18 TELE MONITOR READS SINUS RHYTHM 60-70, ON O2 3L SPO2 98% NO SOB NOTED, HAVE ALEXYS ML WITH ONGOING LR @ 100ML/HR INFUSING WELL, HAVE RIOS ON PLACE WITH DRAINING YELLOW URINE, BED ON LOWEST POSITION AND LOCKED SIDE RAILS UP X2 CALL LIGHT WITHIN REACH WILL CONT TO MONITOR
--- NOTE | 2021-08-18 19:10 | NUR ---
RN NOTES PT FOUND SEMI FOWLERS DISPLAYING NO S/S OF DISTRESS, PT ENDORSES NO PAIN AND IS BREATHING EVEN AND UNLABORED ON 3L O2 NC. SOME ELEMENTS OF CONFUSION SETTING IN, PT ASKING QUESTIONS RN ANSWERED JUST AN HOUR PRIOR. L UA MIDLINE IS PATIENT AND INTACT. RIOS CATH BELOW PATIENT DRAINING BY GRAVITY. L HIP SX SITE IS CLEAN AND DRY. SBAR AND REPORT GIVEN TO MECHANICAL REPAIR WORKER RN, ALL QUESTIONS ANSWERED. SAFETY MEASURES IN PLACE, BED LOCKED AND IN LOWEST POSITION, SIDE RAILS UPX2, CALL LIGHT WITHIN REACH, PT INSTRUCTED TO CALL FOR ASSISTANCE, BED ALARM ARMED. PT ENDORSED IN STABLE CONDITION FOR ANJANA.
[2021-08-18] MEDS: ENOXAPARIN SODIUM 30 MG/0.3 ML DISP.SYRIN SQ SCH (20:31)
--- NOTE | 2021-08-18 21:49 | NUR ---
PT REQUESTED SOME SLEEPING PILLS, INFORMED HOSPITALIST ZULY WINN AND INFORMED HER THAT AMBIEN WAS DC BY LOCKSTITCH TUNNEL ELASTIC OPERATOR DUE TO PT WAS SO LETHARGIC AND HAVE A RESPIRATORY DISTRESS AFTER THE ORIF OF LEFT HIP PROCEDURE, ZULY WINN DO ORDER BENADRYL 25MG PO X1 NOW, OFFERED IT TO PT BUT PT REFUSED TO TAKE THE MEDICATION, MADE AWARE
[2021-08-18] MEDS ORDERED: diphenhydrAMINE HCL 25 MG CAPSULE PO ONE (22:00)
[2021-08-19] VITALS (16 sets, daily range): BP systolic 127–150; BP diastolic 52–91
[2021-08-19] MEDS: MORPHINE SULFATE INJ 2 MG/ML DISP.SYRIN IV PRN ×2 (04:12→17:05)
[2021-08-19 04:14] LABS: BASOPHILS # (AUTO) 0.1 K/uL (0.0-0.2); BASOPHILS % (AUTO) 0.3 % (0.0-2.0); EOSINOPHILS % (AUTO) 0.1 % (0.0-6.0); HEMATOCRIT 32 % (33-45); HEMOGLOBIN 10.1 g/dL (11.5-14.8); LYMPHOCYTES # (AUTO) 0.5 K/uL (0.8-4.8); LYMPHOCYTES % (AUTO) 1.6 % (20.0-44.0); MEAN CORPUSCULAR HGB CONC 32 g/dl (31.0-36.0); MEAN CORPUSCULAR VOLUME 90 fL (82-100); MONOCYTES # (AUTO) 1.2 K/uL (0.1-1.30); MONOCYTES % (AUTO) 3.8 % (2.0-12.0); NEUTROPHILS % (AUTO) 94.2 % (43.0-81.0); PLATELET COUNT (AUTO) 371 K/uL (150-450); RED BLOOD CELL COUNT(AUTO) 3.55 MIL/uL (4.0-5.2)
[2021-08-19 04:35] LABS: WHITE BLOOD COUNT (AUTO) 31.8 K/uL (4.3-11.0)
[2021-08-19 04:57] LABS: ALANINE AMINOTRANSFERASE 50 U/L (12-78); ALBUMIN 1.8 g/dL (3.4-5.0); ALKALINE PHOSPHATASE 355 U/L (46-116); ASPARTATE AMINOTRANSFERASE 59 U/L (15-37); BILIRUBIN,TOTAL 0.5 mg/dL (0.2-1.0); CALCIUM, SERUM 8.2 mg/dL (8.5-10.1); CARBON DIOXIDE 23 mmol/L (21-32); CHLORIDE 105 mmol/L (98-107); CREATININE 2.7 mg/dL (0.6-1.3); GLUCOSE 105 mg/dL (74-106); POTASSIUM 3.9 mmol/L (3.5-5.1); SODIUM SERUM 139 mmol/L (136-145); TOTAL PROTEIN, SERUM 5.9 g/dL (6.4-8.2); UREA NITROGEN, BLOOD 39 mg/dL (7-18)
[2021-08-19 05:32] LABS: BAND % (MANUAL) 1 % (0.0-5.0); LYMPHOCYTES % (MANUAL) 3 % (16-48); MONOCYTES % (MANUAL) 3 % (0-11.0); NEUTROPHILS % (MANUAL) 93 (42-76)
[2021-08-19] MEDS: IV LR 1000 ML 1,000 ML IV PRN ×2 (06:01→17:06)
--- NOTE | 2021-08-19 06:48 | NUR ---
PT RESTING ON BED EYES CLOSE, BUT SHES SAYING THAT SHE DOES NOT SLEEP THE WHOLE NIGHT DUE TO LACK OF SLEEPING MEDICATION, STILL ON O2 2L VIA NC SPO2 96% TELE MONITOR READS SINUS RHYTHM 70'S PT IS STABLE THE WHOLE NIGHT PAIN MEDICATION WAS GIVEN PER PT REQUEST DUE TO PAIN, BED ON LOWEST POSITION AND LOCKED SIDE RAILS UP X2 CALL LIGHT WITHIN REACH WILL CONT TO MONITOR
--- NOTE | 2021-08-19 07:15 | NUR ---
RN NOTES PT FOUND SEMI FOWLERS DISPLAYING NO S/S OF DISTRESS, PT ENDORSES NO PAIN AND IS BREATHING EVEN AND UNLABORED ON 3L O2 NC. L UA MIDLINE IS PATIENT AND INTACT. RIOS CATH BELOW PATIENT DRAINING BY GRAVITY. L HIP SX SITE IS CLEAN AND DRY. VSS, RN WILL MONITOR AND TREAT THROUGHOUT SHIFT. SAFETY MEASURES IN PLACE, BED LOCKED AND IN LOWEST POSITION, SIDE RAILS UPX2, CALL LIGHT WITHIN REACH, PT INSTRUCTED TO CALL FOR ASSISTANCE, BED ALARM ARMED.
[2021-08-19] MEDS: ENSURE ENLIVE 237 ML LIQUID (VANILLA) PO SCH ×2 (07:44→17:18)
[2021-08-19] MEDS: ALLOPURINOL 100 MG TABLET PO SCH (08:05)
[2021-08-19] MEDS: ATENOLOL 50 MG TABLET PO SCH (08:05)
[2021-08-19] MEDS: LEVOTHYROXINE SODIUM 50 MCG TABLET PO SCH (08:05)
[2021-08-19] MEDS: PANTOPRAZOLE 40 MG TABLET.DR PO SCH (08:05)
[2021-08-19] MEDS: NYSTATIN CREAM 15 GM TUBE TP SCH ×2 (08:05→17:18)
--- NOTE | 2021-08-19 10:00 | NUR ---
MD VISIT DR. SANTAMARIA VISITED PT, PERFORMED ASSESSMENT, RECOMMENDED DOWNGRADE LONG PT IS CLEARED BY PULMONOLOGY. MD GAVE ORDERS: AMBIEN 5MG PO HS. RN ACKNOWLEDGED AND WILL ENTER DIRECTED.
--- NOTE | 2021-08-19 10:20 | NUR ---
CRITICAL LAB LAB REPORTED TROPONIN VALUE OF 236, RN INFORMED DR ROMERO. GAVE ORDERS, TROPONIN LAB IN AM. RN ACKNOWLEDGED AND WILL ENTER ORDERS DIRECTED.
[2021-08-19] MEDS ORDERED: ZOLPIDEM TARTRATE 5 MG TABLET PO PRN (10:30)
[2021-08-19] MEDS: CEFEPIME 1 GM in IV D5W 50 ML IV SCH (11:14)
--- NOTE | 2021-08-19 11:30 | NUR ---
TRANSFER RN CALLED AND GAVE REPORT TO TREE BARGER. PT WAS TRANSPORTED TO ROOM 307-2 ACCOMPANIED BY CN AND PRIMARY. PT WAS ON PORTABLE BEDSIDE MONITOR FOR TRANSPORT WELL 2L O2 NC PORTABLE OXYGEN TANK. PT IS A&OX4, C/O NO PAIN. NO COMPLICATIONS DURING TRANSPORT. BELONGINGS CHECKED AND REVIEWED, GIVEN TO RECEIVING RN. PT ENDORSED IN STABLE CONDITION FOR ANJANA. SBAR AND CHART GIVEN.
--- NOTE | 2021-08-19 11:45 | NUR ---
RN NOTE PATIENT WAS TRANSFERRED TO UNIT FROM ICU, GOT REPORT FROM ANGELITA, PATIENT IS AWAKE IN BED RESTING, A/O X4. NO S/S OF PAIN NOTED AT THIS TIME. ON 2L OXYGEN VIA NC, NO DISTRESS OR SHORTNESS OF BREATH NOTED. IV ACCESS ALEXYS MIDLINE WITH LR AT 100ML/HR, INTACT, PATENT AND FLUSHING WELL. PATIENT ON EXTERNAL KILN REMOVER WITH CURRENT READING OF SR AND HR OF 64, NO CARDIAC DISTRESS NOTED. PATIENT HAVE RIOS CATHETER, IN PLACED AND DRAINING WELL. ORIENTED PATIENT TO ROOM SET UP AND SHOWED HER HOW TO USE THE CALL LIGHT. WILL CONTINUE TO MONITOR.
--- NOTE | 2021-08-19 18:45 | NUR ---
RN CLOSING NOTE PATIENT IS AWAKE IN BED RESTING, A/O X4. NO S/S OF PAIN NOTED AT THIS TIME. PAIN MEDICATION LAST GIVEN AT 1705, MORPHINE. ON 2L OXYGEN VIA NC, NO DISTRESS OR SHORTNESS OF BREATH NOTED. IV ACCESS ALEXYS MIDLINE WITH LR AT 100ML/HR, INTACT, PATENT AND FLUSHING WELL. PATIENT ON EXTERNAL PHARMACOVIGILANCE SAFETY EXPERT WITH CURRENT READING OF SR AND HR OF 62, NO CARDIAC DISTRESS NOTED. PATIENT HAVE RIOS CATHETER, IN PLACED AND DRAINING WELL, OUTPUT OF 1000 ML. FALL AND SAFETY MEASURES IN PLACE, BED ALARM ON, BED IN LOW AND LOCK POSITION, CALL LIGHT AND TABLE WITHIN EASY REACH, SIDE RAIL UP X2. WILL ENDORSE TO HAND SANDER NURSE.
--- NOTE | 2021-08-19 19:30 | NUR ---
RN NOTES RECEIVED PATIENT AWAKE ON BED, A/OX3,TALKING TO HER SON OVER THE PHONE, SR ON TELE MONITOR HR-74, F/C DRAINING CLEAR YELLOW URINE, S/P LEFT HIP HEMIARTHROPLASTY LAST 08/18 , DRESSING DRY AND INTACT, NO PAIN NOTED, CALL LIGHT WITHIN REACH, SIDERAILSUPX2, WILL CONTINUE TO MONITOR
--- NOTE | 2021-08-19 21:10 | NUR ---
RN NOTES PATIENT'S SON (DUARTE) TALKED TO ME OVER THE PHONE AND WAS CONCERN THAT THERE MOTHER WAS TELLING SOME STRANGE THINGS, I EXPLAINED TO THE PATIENT'S SONS THAT SINCE THIS IS THE FIRST TIME THAT I'M GOING TO TAKE CARE OF THEIR MOTHER I WILL ASSESS THE PATIENT BUT I NOTICED THAT WHEN I MAKE MY ROUNDS I NOTICED THAT PATIENT'S HAS PERIOD OF CONFUSION. PATIENT IS LEGALLY BLIND AND LIVES ALONE THAT'S WHY THEY ARE CONCERN ABOUT PATIENT HAVING PERIOD OF CONFUSION. PATIENT'S SON ALSO SPOKE TO THE CHARGE NURSE WELL.
[2021-08-19] MEDS: ENOXAPARIN SODIUM 30 MG/0.3 ML DISP.SYRIN SQ SCH (21:25)
--- NOTE | 2021-08-19 22:00 | NUR ---
RN NOTES AMBIEN 5MG PO GIVEN PER PATIENT REQUEST WELL THE FAMILY, PATIENT REFUSED TO BE TURN , EXOPLAINED THE IMPORTANCE OF TURNING BUT PATIENT IS REFUSING
[2021-08-20] VITALS: BP_SYST 125; BP_DIAS 86; BP_DIAS 96
[2021-08-20] MEDS: IV LR 1000 ML 1,000 ML IV PRN ×2 (03:01→17:19)
[2021-08-20 04:14] VITALS: BP 160/63
--- NOTE | 2021-08-20 06:49 | NUR ---
RN NOTES AWAKE, MORNING CARE RENDERED, DENIES PAIN, NO SOB, PATIENT MOVED IN THE MIDDLE, MORNING CARE RENDERED, CALL LIGHT WITHIN REACH, SIDERAILSUPX2, PT. NEEDS ATTENDED
[2021-08-20 07:03] LABS: BASOPHILS # (AUTO) 0.1 K/uL (0.0-0.2); BASOPHILS % (AUTO) 0.2 % (0.0-2.0); HEMATOCRIT 30 % (33-45); HEMOGLOBIN 9.5 g/dL (11.5-14.8); LYMPHOCYTES # (AUTO) 0.9 K/uL (0.8-4.8); LYMPHOCYTES % (AUTO) 2.9 % (20.0-44.0); MEAN CORPUSCULAR HGB CONC 31 g/dl (31.0-36.0); MEAN CORPUSCULAR VOLUME 90 fL (82-100); MONOCYTES # (AUTO) 1.2 K/uL (0.1-1.30); MONOCYTES % (AUTO) 4.1 % (2.0-12.0); NEUTROPHILS # (AUTO) 27.8 K/uL (1.8-8.9); NEUTROPHILS % (AUTO) 91.8 % (43.0-81.0); PLATELET COUNT (AUTO) 453 K/uL (150-450); RED BLOOD CELL COUNT(AUTO) 3.36 MIL/uL (4.0-5.2)
[2021-08-20 07:33] LABS: CALCIUM, SERUM 8.7 mg/dL (8.5-10.1); CARBON DIOXIDE 24 mmol/L (21-32); CHLORIDE 103 mmol/L (98-107); CREATININE 2.5 mg/dL (0.6-1.3); GLUCOSE 66 mg/dL (74-106); POTASSIUM 3.3 mmol/L (3.5-5.1); SODIUM SERUM 138 mmol/L (136-145); UREA NITROGEN, BLOOD 38 mg/dL (7-18)
[2021-08-20 08:00] VITALS: BP 148/70
--- NOTE | 2021-08-20 08:00 | NUR ---
MS RN OPENING NOTES RECEIVED PATIENT IN BED AWAKE, A/O X3. NOT IN APPARENT DISTRESS. NO C/O PAIN @ THIS TIME. ON O2 VIA NASAL CANULA @ 2LPM. BREATHING EVEN AND UNLABORED. HAS LEFT UPPER ARM MIDLINE WITH LR RUNNING @ 100 ML/HR. SAFETY PRECAUTIONS IN PLACED. WILL CONTINUE PLAN OF CARE.
[2021-08-20 08:17] LABS: WHITE BLOOD COUNT (AUTO) 30.3 K/uL (4.3-11.0)
[2021-08-20] MEDS: PANTOPRAZOLE 40 MG TABLET.DR PO SCH (08:28)
[2021-08-20] MEDS: LEVOTHYROXINE SODIUM 50 MCG TABLET PO SCH (08:30)
[2021-08-20] MEDS: ALLOPURINOL 100 MG TABLET PO SCH (08:33)
[2021-08-20] MEDS: ATENOLOL 50 MG TABLET PO SCH (08:33)
[2021-08-20] MEDS: ENSURE ENLIVE 237 ML LIQUID (VANILLA) PO SCH ×2 (08:36→16:58)
[2021-08-20] MEDS: NYSTATIN CREAM 15 GM TUBE TP SCH ×2 (09:17→17:00)
[2021-08-20] MEDS ORDERED: POTASSIUM CHLORIDE 20 MEQ TAB.PRT.SR PO ONE ×2 (10:00→14:00)
[2021-08-20] MEDS: ATORVASTATIN 10 MG TABLET PO SCH (10:25)
[2021-08-20] MEDS: ASPIRIN 81 MG TAB.CHEW PO SCH (10:25)
--- NOTE | 2021-08-20 11:00 | NUR ---
RAIL OPERATIONS CONTROLLER NOTES SEEN BY SIMONA URBINA WITH ORDER TO CONTINUE PT. SEEN BY DR. SANTAMARIA WITH ORDER TO DISCONTINUE RIOS CATHETER AND CHANGE AMBIEN TO RESTORIL 15 MG QHS. ANGELITA'S (PT. SON) NUMBER GIVEN TO FOR FURTHER DISCUSSION OF PT. STATUS. AWARE OF CURRENT LAB RESULTS.
[2021-08-20 12:00] VITALS: BP 131/57
[2021-08-20] MEDS: CEFEPIME 1 GM in IV D5W 50 ML IV SCH (12:38)
[2021-08-20 16:00] VITALS: BP 139/69
[2021-08-20 16:23] LABS: LYMPHOCYTES % (MANUAL) 6 % (16-48); MONOCYTES % (MANUAL) 2 % (0-11.0); NEUTROPHILS % (MANUAL) 92 (42-76)
--- NOTE | 2021-08-20 19:10 | NUR ---
MANAGER STRATEGIC DEVELOPMENT CLOSING NOTES PATIENT IN BED REST, A/O X3 WITH PERIODS OF ANXIETY. ON OXYGEN VIA NASAL CANULA @ 2 LPM. NO SOB OR . NO BOWEL MOVEMENT DURING SHIFT. EMESIS X2 IN THE MORNING, ADMINISTERED PRN ONDANSETRON. REASSESSED AND EFFECTIVE. HAS LEFT UPPER ARM MIDLINE WITH LR RUNNING @ 100 ML/HR PATENT AND INTACT. MONITORING BILATERAL UPPER EXTREMITIES FOR BRUISING. ALL NEEDS ATTENDED. DISCONTINUED RIOS CATHETER AND INSTRUCTED TO CALL NURSE FOR BEDPAN. KEPT DRY AND COMFORTABLE. SAFETY PRECAUTIONS IN PLACED: BED LOW AND LOCKED, SIDE RAILS UP X3, BED ALARM ON. INSTRUCTED ON HOW TO USE CALL ALARM.
--- NOTE | 2021-08-20 19:20 | NUR ---
SIGN HANGER SUPERVISOR OPENING NOTES: RECEIVED PATIENT IN BED, AWAKE, A/O X2. NO S/S OF DISTRESS NOTED. NO COMPLAIN OF PAIN. CALL LIGHT WITHIN REACH. BED ALARM ON. BED IN LOWEST AND LOCKED POSITION. HOB ELEVATED. WITH ABDUCTION PILLOW AT ALL TIMES. WITH SCD'S ON BOTH LEGS ON. INSTRUCTED TO DO THE INCENTIVE SPIROMETER PATIENT DID. WITH O2 AT 2L/MIN NASAL CANNULA. ON TELE MONITOR WITH SINUS 60.
[2021-08-20 20:00] VITALS: BP 152/75
[2021-08-20] MEDS: ENOXAPARIN SODIUM 30 MG/0.3 ML DISP.SYRIN SQ SCH (21:55)
[2021-08-20] MEDS: HYDROCODONE/APAP 5/325MG TABLET PO PRN (22:30)
[2021-08-21] VITALS: BP 162/63
[2021-08-21] MEDS: IV LR 1000 ML 1,000 ML IV PRN ×2 (04:25→14:34)
[2021-08-21 05:57] LABS: CALCIUM, SERUM 7.6 mg/dL (8.5-10.1); CARBON DIOXIDE 23 mmol/L (21-32); CHLORIDE 107 mmol/L (98-107); CREATININE 2.3 mg/dL (0.6-1.3); GLUCOSE 100 mg/dL (74-106); POTASSIUM 3.6 mmol/L (3.5-5.1); SODIUM SERUM 140 mmol/L (136-145); UREA NITROGEN, BLOOD 32 mg/dL (7-18)
[2021-08-21 06:19] VITALS: BP 165/56
--- NOTE | 2021-08-21 07:25 | NUR ---
LACQUER SIZER OPENING NOTES PATIENT IN BED RESTING, A/O X3. ON O2 VIA NC @ 2 LPM. NO S/SX OF RESPIRATORY DISTRESS NOTED. NO PAIN VERBALIZED AT THIS TIME. HAS LEFT UPPER ARM MIDLINE WITH LR RUNNING @ 100 ML/HR PATENT AND INTACT. SAFETY PRECAUTIONS IN PLACED: BED LOW AND LOCKED, SIDE RAILS UP X3, BED ALARM ON. INSTRUCTED ON HOW TO USE CALL ALARM. WILL CONTINUE TO MONITOR PATIENT.
[2021-08-21 08:00] VITALS: BP 134/59
[2021-08-21 08:32] LABS: BASOPHILS % (AUTO) 0.1 % (0.0-2.0); EOSINOPHILS % (AUTO) 1.7 % (0.0-6.0); HEMATOCRIT 27 % (33-45); HEMOGLOBIN 8.7 g/dL (11.5-14.8); LYMPHOCYTES # (AUTO) 0.7 K/uL (0.8-4.8); LYMPHOCYTES % (AUTO) 2.6 % (20.0-44.0); MEAN CORPUSCULAR HGB CONC 32 g/dl (31.0-36.0); MEAN CORPUSCULAR VOLUME 91 fL (82-100); MONOCYTES % (AUTO) 3.6 % (2.0-12.0); NEUTROPHILS # (AUTO) 24.6 K/uL (1.8-8.9); PLATELET COUNT (AUTO) 397 K/uL (150-450); RED BLOOD CELL COUNT(AUTO) 3.01 MIL/uL (4.0-5.2); WHITE BLOOD COUNT (AUTO) 26.7 K/uL (4.3-11.0)
[2021-08-21] MEDS: ATORVASTATIN 10 MG TABLET PO SCH (09:15)
[2021-08-21] MEDS: ASPIRIN 81 MG TAB.CHEW PO SCH (09:15)
[2021-08-21] MEDS: ISOSORBIDE DINITRATE (20MG) 20 MG TABLET PO SCH ×2 (09:16→18:21)
[2021-08-21] MEDS: PANTOPRAZOLE 40 MG TABLET.DR PO SCH (09:17)
[2021-08-21] MEDS: ALLOPURINOL 100 MG TABLET PO SCH (09:17)
[2021-08-21] MEDS: ATENOLOL 50 MG TABLET PO SCH (09:17)
[2021-08-21] MEDS: hydrALAZINE HCL 50 MG TABLET PO SCH ×3 (09:19→18:24)
[2021-08-21] MEDS: LEVOTHYROXINE SODIUM 50 MCG TABLET PO SCH (09:20)
[2021-08-21] MEDS: NYSTATIN CREAM 15 GM TUBE TP SCH ×2 (09:40→18:19)
[2021-08-21] MEDS: ENSURE ENLIVE 237 ML LIQUID (VANILLA) PO SCH ×2 (09:41→18:15)
[2021-08-21 12:00] VITALS: BP 109/51
[2021-08-21] MEDS: CEFEPIME 1 GM in IV D5W 50 ML IV SCH (12:10)
[2021-08-21] MEDS ORDERED: LEVOFLOXACIN 750 MG /D5W 150ML 750 MG in PREMIX 1 EA IV ONE (13:30)
--- NOTE | 2021-08-21 13:40 | NUR ---
RT EKG COMPLETED PER ORDER, RESULTS GIVEN TO NURSE NELIDA
[2021-08-21 16:00] VITALS: BP 140/60
--- NOTE | 2021-08-21 18:50 | NUR ---
CONTINUITY READER CLOSING NOTES PATIENT IN BED RESTING, A/O X3. ON 2L OF O2 WITH NO S/SX OF RESPIRATORY DISTRESS NOTED. HAS LEFT UPPER ARM MIDLINE WITH LR RUNNING @ 100 ML/HR PATENT AND INTACT. ALL ORDERS CARRIED OUT AND NEEDS MET. SAFETY PRECAUTIONS IN PLACED: BED LOW AND LOCKED, SIDE RAILS UP X3, BED ALARM ON, CALL LIGHT WITHIN REACH. WILL ENDORSE TO WEATHER FORECASTER NURSE FOR ANJANA
--- NOTE | 2021-08-21 19:35 | NUR ---
REAL ESTATE MANAGEMENT SPECIALIST NOTES RECEIVED ON BED A/O X3,BREATHING EVEN AND UNLABORED,O2 2L/NC IN USED ON AND OFF,S/P LEFT HIP HEMIARTHROPLASTY ON 08/18,DRESSING INTACT AND DRY.PRESENT IVF LR AT 100ML/HR RATE,INFUSING ON LEFT UPPER ARM MIDLINE,PAIN TOLERABLE AT THE MOMENT,CALL LIGHT IN REACH,NEEDS ANTICIPATED.CALL LIGHT IN EACH,NEEDS ANTICIPATED.
[2021-08-21 20:00] VITALS: BP 139/57
[2021-08-21] MEDS: ENOXAPARIN SODIUM 30 MG/0.3 ML DISP.SYRIN SQ SCH (21:27)
[2021-08-21] MEDS: TEMAZEPAM 15 MG CAPSULE PO PRN (21:30)
--- NOTE | 2021-08-21 21:30 | NUR ---
MERCHANDISING EXECUTION ASSOCIATE NOTES C/O INSOMNIA,RESTORIL 15MG PO GIVEN PER PATIENT REQUEST.
[2021-08-22] VITALS (7 sets, daily range): BP systolic 116–157; BP diastolic 53–97
[2021-08-22] MEDS: IV LR 1000 ML 1,000 ML IV PRN ×2 (01:00→15:24)
--- NOTE | 2021-08-22 01:00 | NUR ---
PAYROLL COORDINATOR NOTES SOUND ASLEEP,O2 IN USED 2L/,O2 SAT 96%.
--- NOTE | 2021-08-22 03:30 | NUR ---
STRUCTURAL FITTER NOTES SOMEBODY CALL NAMED DR CARTER IN REGARDS TO THIS PATIENT,SAYING PATIENT CALLED HIM THAT SHE CANNOT BREATH.WENT INSIDE THE ROOM WITH THE CHARGE NURSE TO CHECK ON PATIENT,APPARENTLY,PATIENT TOOK OFF HER OXYGEN BECAUSE IT DRY UP HER NASAL MUCOSA. PUT IT BACK ON THE OXYGEN AT AT 2-3 LITER NC,O2 LEVEL BACK UP TO 91% ,BLOOD PRESSURE WITH IN NORMAL LIMITS.
--- NOTE | 2021-08-22 04:00 | NUR ---
PROGRAM FACILITATOR NOTES O2 SAT THIS TIME WENT UP TO 97%. AT 3LITERS PER NASAL CANULA
--- NOTE | 2021-08-22 05:00 | NUR ---
PHYSICIAN GYNECOLOGIST NOTES MORNING CARE RENDERED,TOLERATED WELL,ABDUCTION PILLOW APPLIED IN BETWEEN LEGS.C/O PAIN THIS TIME 5/10 ON PAIN SCALE.WILL MEDICATE.
[2021-08-22] MEDS: HYDROCODONE/APAP 5/325MG TABLET PO PRN ×3 (05:38→21:18)
--- NOTE | 2021-08-22 05:38 | NUR ---
COUNTY AGENT NOTES C/O PAIN 5-6/10 ON PAIN SCALE,NORCO 5/325,1 TAB PO GIVEN CRUSHED MIX WITH APPLE SAUCE.NEGATIVE FOR ASPIRATION
--- NOTE | 2021-08-22 06:24 | NUR ---
PRODUCTION GENERALIST NOTES SLEEPING THIS TIME,HOB ELEVATED,BREATHING EVEN AND UNLABORED,O2 SAT 99% ON 3L/NC.,CALL LIGHT IN REACH,IN NO ACUTE DISTRESS.WILL ENDORSE TO DAY NURSE FOR ANJANA.
[2021-08-22 07:09] LABS: CALCIUM, SERUM 7.7 mg/dL (8.5-10.1); CARBON DIOXIDE 24 mmol/L (21-32); CHLORIDE 105 mmol/L (98-107); CREATININE 2.3 mg/dL (0.6-1.3); GLUCOSE 82 mg/dL (74-106); POTASSIUM 3.8 mmol/L (3.5-5.1); SODIUM SERUM 139 mmol/L (136-145); UREA NITROGEN, BLOOD 30 mg/dL (7-18)
[2021-08-22] MEDS: Magnesium 1GM/D5W 100ML PREMIX 100 ML IV SCH ×2 (09:45→11:09)
[2021-08-22] MEDS: NYSTATIN CREAM 15 GM TUBE TP SCH ×2 (09:45→17:55)
[2021-08-22] MEDS: ATORVASTATIN 10 MG TABLET PO SCH (09:45)
[2021-08-22] MEDS: ASPIRIN 81 MG TAB.CHEW PO SCH (09:45)
[2021-08-22] MEDS: ATENOLOL 50 MG TABLET PO SCH (09:45)
[2021-08-22] MEDS: ALLOPURINOL 100 MG TABLET PO SCH (09:45)
[2021-08-22] MEDS: ISOSORBIDE DINITRATE (20MG) 20 MG TABLET PO SCH ×2 (09:46→17:55)
[2021-08-22] MEDS: hydrALAZINE HCL 50 MG TABLET PO SCH ×3 (09:46→17:54)
[2021-08-22] MEDS: ENSURE ENLIVE 237 ML LIQUID (VANILLA) PO SCH (09:47)
[2021-08-22] MEDS: LEVOTHYROXINE SODIUM 50 MCG TABLET PO SCH (09:48)
[2021-08-22] MEDS: PANTOPRAZOLE 40 MG TABLET.DR PO SCH (09:48)
[2021-08-22] MEDS ORDERED: Magnesium 1GM/D5W 100ML PREMIX 100 ML IV SCH (10:30)
[2021-08-22 12:39] LABS: BASOPHILS # (AUTO) 0.1 K/uL (0.0-0.2); BASOPHILS % (AUTO) 0.6 % (0.0-2.0); EOSINOPHILS % (AUTO) 1.8 % (0.0-6.0); HEMATOCRIT 26 % (33-45); HEMOGLOBIN 8.3 g/dL (11.5-14.8); LYMPHOCYTES # (AUTO) 0.8 K/uL (0.8-4.8); MEAN CORPUSCULAR HGB CONC 32 g/dl (31.0-36.0); MEAN CORPUSCULAR VOLUME 91 fL (82-100); MONOCYTES % (AUTO) 4.1 % (2.0-12.0); NEUTROPHILS # (AUTO) 22.5 K/uL (1.8-8.9); NEUTROPHILS % (AUTO) 90.5 % (43.0-81.0); PLATELET COUNT (AUTO) 398 K/uL (150-450); RED BLOOD CELL COUNT(AUTO) 2.88 MIL/uL (4.0-5.2); WHITE BLOOD COUNT (AUTO) 24.9 K/uL (4.3-11.0)
--- NOTE | 2021-08-22 19:35 | NUR ---
COMBINING MACHINE OPERATOR NOTES RECEIVED ON BED A/O X3,BREATHING NON LABORED,O2 AT 3L/NC IN USED,O2 SAT 92%.IVF LR AT 100ML/HR RATE,INFUSING ON LEFT UPPER ARM MIDLINE.S/P LEFT HIP JANKI ARTHROPLASTY,DRESSING INTACT AND DRY,NOTED SKIN REDNESS ON PERINEAL/BUTTOCKS AREA.ABDUCTION PILLOW IN PLACE,HOB ELEVATED ,CALL LIGHT IN REACH,NEEDS ANTICIPATED.
--- NOTE | 2021-08-22 19:59 | NUR ---
TAPING SUPERVISOR OPENING NOTE Patient in bed, asleep. A/O x 3. On O2 at 3 LPM via NC, no SOB or s/s of distress noted. IV access on ALEXYS midline infusing LR at 100 cc/hr. Safety precautions in place: bed in low, locked position; siderails up x 2; call light within reach. Will continue to monitor.
--- NOTE | 2021-08-22 20:00 | NUR ---
INTERVENTIONAL RADIOLOGY RN CLOSING NOTE Patient in bed resting. No SOB or s/s of distress noted. Patient was stable the whole shift. Due meds given. All needs attended to. Safety precautions in place: bed in low, locked position; siderails up x 2; call light within reach. Will endorse to trail maintenance worker nurse for ANJANA.
--- NOTE | 2021-08-22 20:00 | NUR ---
TALENT DEVELOPMENT MANAGER NOTES PATIENT WAS CALLING FAMILY IN REGARDS TO HER BREATHING,CHECKING ON HER,SHE KEEPS ON TAKING OUT HER OXYGEN/NC.ADVISED NOT TO TAKE IT OUT,OR ELSE SHE HAVE SHORTNESS OF BED.
[2021-08-22] MEDS: ENOXAPARIN SODIUM 30 MG/0.3 ML DISP.SYRIN SQ SCH (21:09)
--- NOTE | 2021-08-22 21:18 | NUR ---
MANAGER BEHAVIORAL NOTES C/O LEFT HIP PAIN 5-6/10 ON PAIN SCALE.MEDICATED WITH NORCO 5/325,1 TAB,CRUSHED AND GIVEN WITH APPLE SAUCE,TAKEN WELL,NEGATIVE FOR ASPIRATION.
--- NOTE | 2021-08-22 22:00 | NUR ---
BAGGAGE HANDLER NOTES NOTED SKIN REDNESS/RASH ON PERINEAL AREA AND BUTTOCKS AREA.CLEANSE WITH SOAP AND WATER,PAT DRY AND APPLIED SKIN BARRIER,COVERED BUTTOCKS WITH MEPILEX.WOUND CARE CONSULT TRIGGERED IN THE MORNING
[2021-08-23] VITALS: BP 157/97
[2021-08-23 04:00] VITALS: BP 132/71
[2021-08-23] MEDS: MORPHINE SULFATE INJ 2 MG/ML DISP.SYRIN IV PRN (04:09)
--- NOTE | 2021-08-23 04:09 | NUR ---
DATA ACQUISITION TECHNICIAN NOTES C/O LEFT HIP PAIN 8/10 ON PAIN SCALE,MORPHINE 4MG IV GIVEN ORDERED AND PER PATIENT REQUEST.
--- NOTE | 2021-08-23 06:33 | NUR ---
CURVE SAW OPERATOR NOTES SB-51 0N TELE MONITOR,APPEARS SLEEPY FROM MORPHINE GIVEN EARLIER,IVF INFUSING,DVT PUMP IN USED FOR DVT PROPHYLAXIS.KEPT NPO POST MIDNIGHT,GOING FOR STRESS TEST TODAY,CONSENT ON CHART.CALL LIGHT IN REACH,NEEDS ATTENDED.
[2021-08-23 06:38] LABS: BASOPHILS # (AUTO) 0.3 K/uL (0.0-0.2); BASOPHILS % (AUTO) 1.3 % (0.0-2.0); EOSINOPHILS % (AUTO) 2.1 % (0.0-6.0); HEMATOCRIT 25 % (33-45); HEMOGLOBIN 8.2 g/dL (11.5-14.8); LYMPHOCYTES # (AUTO) 0.7 K/uL (0.8-4.8); LYMPHOCYTES % (AUTO) 3.6 % (20.0-44.0); MEAN CORPUSCULAR HGB CONC 33 g/dl (31.0-36.0); MEAN CORPUSCULAR VOLUME 90 fL (82-100); MONOCYTES % (AUTO) 5.3 % (2.0-12.0); NEUTROPHILS # (AUTO) 17.3 K/uL (1.8-8.9); NEUTROPHILS % (AUTO) 87.7 % (43.0-81.0); PLATELET COUNT (AUTO) 391 K/uL (150-450); WHITE BLOOD COUNT (AUTO) 19.7 K/uL (4.3-11.0)
[2021-08-23 07:01] LABS: CALCIUM, SERUM 8.1 mg/dL (8.5-10.1); CARBON DIOXIDE 25 mmol/L (21-32); CHLORIDE 100 mmol/L (98-107); CREATININE 2.2 mg/dL (0.6-1.3); GLUCOSE 88 mg/dL (74-106); POTASSIUM 3.6 mmol/L (3.5-5.1); SODIUM SERUM 132 mmol/L (136-145); UREA NITROGEN, BLOOD 30 mg/dL (7-18)
--- NOTE | 2021-08-23 07:24 | NUR ---
COVERSTITCH MACHINE OPERATOR OPENING NOTES RECEIVED PATIENT IN BED RESTING, A/O X3. PATIENT IS BREATHING EVENLY AND NONLABORED ON O2 VIA NC @ 2 LPM. NO S/SX OF RESPIRATORY DISTRESS NOTED. NO PAIN VERBALIZED AT THIS TIME. PATIENT HAS LEFT UPPER ARM MIDLINE WITH LR RUNNING @ 100 ML/HR PATENT AND INTACT. PATIENT ON TELE MONITORING. SAFETY PRECAUTIONS IN PLACED: BED LOW AND LOCKED, SIDE RAILS UP X3, BED ALARM ON. INSTRUCTED ON HOW TO USE CALL ALARM. WILL CONTINUE TO MONITOR
[2021-08-23] MEDS: LEVOTHYROXINE SODIUM 50 MCG TABLET PO SCH (07:30)
--- NOTE | 2021-08-23 08:00 | NUR ---
RN NOTE PATIENT LEFT FOR PROCEDURE
[2021-08-23 08:06] VITALS: BP 155/71
[2021-08-23] MEDS: PANTOPRAZOLE 40 MG TABLET.DR PO SCH (08:28)
[2021-08-23] MEDS: ASPIRIN 81 MG TAB.CHEW PO SCH (08:28)
[2021-08-23] MEDS: ATORVASTATIN 10 MG TABLET PO SCH (08:28)
[2021-08-23] MEDS: ALLOPURINOL 100 MG TABLET PO SCH (08:28)
[2021-08-23] MEDS: ISOSORBIDE DINITRATE (20MG) 20 MG TABLET PO SCH ×2 (08:29→16:09)
[2021-08-23] MEDS: NYSTATIN CREAM 15 GM TUBE TP SCH ×2 (08:29→16:09)
[2021-08-23] MEDS: hydrALAZINE HCL 50 MG TABLET PO SCH ×3 (08:29→16:09)
[2021-08-23] MEDS: ATENOLOL 50 MG TABLET PO SCH (08:29)
[2021-08-23] MEDS ORDERED: REGADENOSON 0.4 MG/5 ML DISP.SYRIN IVP ONE (09:00)
[2021-08-23] MEDS ORDERED: LEVOFLOXACIN 500 MG /D5W 100ML 500 MG in PREMIX 1 EA IV SCH (09:00)
--- NOTE | 2021-08-23 09:38 | NUR ---
WOUND CARE CONSULT: PT OFF UNIT AT THIS TIME. WILL SEE PT PT CONDITION PERMITS.
--- NOTE | 2021-08-23 10:48 | NUR ---
WOUND CARE CONSULT: PT PRESENTS WITH PERINEAL REDNESS WHICH WAS NOTED TO BE PRESENT ON ADMISSION AND RASH WITH PEELING SKIN TO INNER THIGHS, BUTTOCKS AND PERINEUM. RECOMMENDATIONS MADE FOR SKIN CARE AND PROTECTION. DISCUSSED WITH NURSING STAFF. PT IS ON PADMA ISOFLEX LOW AIRLOSS BED. PT IS INCONTINENT OF URINE. MD IN AGREEMENT WITH PLAN OF CARE.
--- NOTE | 2021-08-23 10:50 | NUR ---
NM:CARDIAC STRESS TEST WAS COMPLETED, TECH:RB
--- NOTE | 2021-08-23 11:03 | NUR ---
RN NOTE UPON ASSESSMENT, PATIENT NOTED TO HAVE COLD LOWER EXTREMITY WITH MINIMAL PULSE & EDEMA , MD NOTIFIED
--- NOTE | 2021-08-23 11:10 | NUR ---
RN NOTE GAVE NEW ORDER FOR LOWER EXTREMITY DOPPLER.
[2021-08-23] MEDS: CLOTRIMAZOLE/BETAMETASONE DIPROPIONATE 15 GM TUBE TP SCH ×2 (11:51→16:09)
[2021-08-23 15:58] VITALS: BP 137/61
--- NOTE | 2021-08-23 18:26 | NUR ---
TAB MACHINE OPERATOR CLOSING NOTES PATIENT IN BED RESTING, A/O X3. PATIENT IS BREATHING EVENLY AND NONLABORED ON O2 VIA NC @ 2 LPM. NO S/SX OF RESPIRATORY DISTRESS NOTED. NO PAIN VERBALIZED AT THIS TIME. PATIENT HAS LEFT UPPER ARM MIDLINE WITH LR RUNNING @ 100 ML/HR PATENT AND INTACT. PATIENT ON TELE MONITORING. PATIENT ON PURWICK, CONNECTED TO SUCTION. ALL MEDICATIONS GIVEN ORDERED. PATIENT TURNED AND REPOSITIONED PER PROTOCOL. SAFETY PRECAUTIONS IN PLACED: BED LOW AND LOCKED, SIDE RAILS UP X3, BED ALARM ON. INSTRUCTED ON HOW TO USE CALL ALARM. WILL ENDORSE TO ONCOMING SHIFT
[2021-08-23 20:00] VITALS: BP 120/58
[2021-08-23] MEDS: ENOXAPARIN SODIUM 30 MG/0.3 ML DISP.SYRIN SQ SCH (21:22)
[2021-08-23] MEDS: TEMAZEPAM 15 MG CAPSULE PO PRN (22:13)
[2021-08-24] VITALS: BP 121/56
[2021-08-24 04:00] VITALS: BP 138/61
[2021-08-24 06:59] LABS: BASOPHILS # (AUTO) 0.1 K/uL (0.0-0.2); BASOPHILS % (AUTO) 0.5 % (0.0-2.0); EOSINOPHILS % (AUTO) 0.5 % (0.0-6.0); HEMATOCRIT 24 % (33-45); HEMOGLOBIN 7.9 g/dL (11.5-14.8); LYMPHOCYTES # (AUTO) 0.6 K/uL (0.8-4.8); LYMPHOCYTES % (AUTO) 3.9 % (20.0-44.0); MEAN CORPUSCULAR HGB CONC 33 g/dl (31.0-36.0); MEAN CORPUSCULAR VOLUME 90 fL (82-100); MONOCYTES # (AUTO) 0.7 K/uL (0.1-1.30); MONOCYTES % (AUTO) 4.4 % (2.0-12.0); NEUTROPHILS % (AUTO) 90.7 % (43.0-81.0); PLATELET COUNT (AUTO) 379 K/uL (150-450); RED BLOOD CELL COUNT(AUTO) 2.71 MIL/uL (4.0-5.2); WHITE BLOOD COUNT (AUTO) 15.4 K/uL (4.3-11.0)
--- NOTE | 2021-08-24 07:45 | NUR ---
YEAST PUMPER CLOSING NOTE report given to neelima for cont. of care.
[2021-08-24 08:00] VITALS: BP 140/56
--- NOTE | 2021-08-24 08:15 | NUR ---
RN NOTES PATIENT UP IN BED, AWAKE AND VERBALLY RESPONSIVE; ASSISTED W/ BREAKFAST, ABLE TO LOCATE ITEMS ON BEDSIDE TABLE. 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 CALL LIGHT PLACED W/IN REACH. WILL CONTINUE TO MONITOR.
[2021-08-24] MEDS: ATORVASTATIN 10 MG TABLET PO SCH (08:44)
[2021-08-24] MEDS: ASPIRIN 81 MG TAB.CHEW PO SCH (08:44)
[2021-08-24] MEDS: LEVOTHYROXINE SODIUM 50 MCG TABLET PO SCH (08:44)
[2021-08-24] MEDS: ALLOPURINOL 100 MG TABLET PO SCH (08:44)
[2021-08-24] MEDS: ATENOLOL 50 MG TABLET PO SCH (08:45)
[2021-08-24] MEDS: PANTOPRAZOLE 40 MG TABLET.DR PO SCH (08:45)
[2021-08-24] MEDS: hydrALAZINE HCL 50 MG TABLET PO SCH ×2 (08:46→12:37)
[2021-08-24] MEDS: ISOSORBIDE DINITRATE (20MG) 20 MG TABLET PO SCH (08:46)
[2021-08-24] MEDS: CLOTRIMAZOLE/BETAMETASONE DIPROPIONATE 15 GM TUBE TP SCH (09:07)
[2021-08-24] MEDS: NYSTATIN CREAM 15 GM TUBE TP SCH (09:07)
--- NOTE | 2021-08-24 10:20 | NUR ---
RN NOTES PT AT BEDSIDE FOR EXERCISES.
--- NOTE | 2021-08-24 11:55 | NUR ---
RN NOTES SPOKE W/ VIVIAN HAUSER, SON, AND INFORMED ABOUT PATIENT'S CONDITION/PROGRESS.
--- NOTE | 2021-08-24 15:30 | NUR ---
RN NOTES ATTEMPTED TO CALL [facility] X2 TO GIVE REPORT BUT NO RESPONSE.
[2021-08-24 15:55] VITALS: BP 145/66
--- NOTE | 2021-08-24 16:45 | NUR ---
RN NOTES PATIENT REPORT, DISCHARGE INSTRUCTIONS AND EDUCATION GIVEN TO REYNA, RN, AT [facility]. EMT AT BEDSIDE TO LEAD INSPECTOR PATIENT. BEDSIDE ENDORSEMENT DONE. BELONGINGS SENT WITH PATIENT. IV LINE REMOVED. CHARGE NURSE AND MD AWARE OF DISCHARGE.
== END 2021-08-24 16:35 | DRG 853 ==
LOC: ER 23:12 → MED 08-12 04:29 → MEDSG1 08-12 04:31 → ICU 08-18 10:23 → TELE 08-19 11:31
PROVIDERS: ADMIT Nurse Practitioner Acute Care; ATTEND Nurse Practitioner Acute Care
PROC: 05HC33Z Insertion of Infusion Device into Left Basilic Vein, Percutaneous Approach (ICD-10-PCS; 2021-08-15)
PROC: 0SRS01A Replacement of Left Hip Joint, Femoral Surface with Metal Synthetic Substitute, Uncemented, Open Approach (ICD-10-PCS; principal; 2021-08-18)
PROC: 0W9B3ZZ Drainage of Left Pleural Cavity, Percutaneous Approach (ICD-10-PCS; 2021-08-18)
DX: A41.50 Gram-negative sepsis, unspecified (principal); S72.002A Fracture of unspecified part of neck of left femur, initial encounter for closed fracture; N17.0 Acute kidney failure with tubular necrosis; G92.8 Other toxic encephalopathy; J15.9 Unspecified bacterial pneumonia; J96.01 Acute respiratory failure with hypoxia; J69.0 Pneumonitis due to inhalation of food and vomit; E87.1 Hypo-osmolality and hyponatremia; N39.0 Urinary tract infection, site not specified; E87.2 Acidosis; N18.5 Chronic kidney disease, stage 5; J98.11 Atelectasis; J90 Pleural effusion, not elsewhere classified; W01.0XXA Fall on same level from slipping, tripping and stumbling without subsequent striking against object, initial encounter; Y92.009 Unspecified place in unspecified non-institutional (private) residence as the place of occurrence of the external cause; E03.9 Hypothyroidism, unspecified; D63.8 Anemia in other chronic diseases classified elsewhere; E86.0 Dehydration; M10.9 Gout, unspecified; Z79.899 Other long term (current) drug therapy; Z20.822 Contact with and (suspected) exposure to COVID-19; Z86.73 Personal history of transient ischemic attack (TIA), and cerebral infarction without residual deficits; Z87.442 Personal history of urinary calculi; Z98.890 Other specified postprocedural states; I12.9 Hypertensive chronic kidney disease with stage 1 through stage 4 chronic kidney disease, or unspecified chronic kidney disease; M51.36 Other intervertebral disc degeneration, lumbar region; M48.061 Spinal stenosis, lumbar region without neurogenic claudication; I25.10 Atherosclerotic heart disease of native coronary artery without angina pectoris; I25.2 Old myocardial infarction; I70.0 Atherosclerosis of aorta; N20.0 Calculus of kidney; M85.80 Other specified disorders of bone density and structure, unspecified site; R65.20 Severe sepsis without septic shock; E83.42 Hypomagnesemia; D50.9 Iron deficiency anemia, unspecified; E87.6 Hypokalemia; L30.4 Erythema intertrigo; M43.16 Spondylolisthesis, lumbar region; I27.20 Pulmonary hypertension, unspecified; F17.200 Nicotine dependence, unspecified, uncomplicated; L27.0 Generalized skin eruption due to drugs and medicaments taken internally; T36.1X5A Adverse effect of cephalosporins and other beta-lactam antibiotics, initial encounter; Y92.89 Other specified places as the place of occurrence of the external cause
CPT/HCPCS: 36410; 36415; 36600; 70450-TC; 70486-TC; 71045-TC; 72125-TC; 72131-TC; 72170-TC; 72192-TC; 73502; 80048-TC; 80053-TC; 80061-TC; 80202-TC; 81001; 82570-TC; 82728-TC; 82803-TC; 83540-TC; 83735-TC; 84100-TC; 84155-TC; 84300-TC; 84439-TC; 84443-TC; 84484-TC; 85025-TC; 85027-TC; 85730-TC; 86850-TC; 87040-TC; 87070-TC; 87075-TC; 87081-TC; 87102-TC; 88108-TC; 88305-TC; 88311-TC; 89051-TC; 93307-TC; 93970-TC; 94640-TC; 94799-TC; 97110-TC; 97116-TC; 97530-TC; A4216; A4217; A6209; A6253; A6403; A9502; C1776; C9113; C9803; G0378; J0690; J0692; J1100; J1170; J1644; J1650; J1940; J1956; J2175; J2270; J2405; J2704; J2785; J3370; J3475; J3490; J7030; J7050; J7060; J7120; L0172

== ENCOUNTER 2021-10-31 16:55 | Inpatient (IN) | payer MEDICARE, BC ==
[~2021-10-31] VITALS: Ht 154.9 cm; Wt 43.1 kg
--- NOTE | 2021-10-31 17:38 | NUR ---
Robbi mensah in EDM - 10/31/21 at 1850 by STORM To ER bed 10, BIBA [id number] From Home "Fell 1 wk ago since then been feeling weak", aaox3, breathing even and non labored, connected to monitor, awaiting md dickinson, family at bedside
--- NOTE | 2021-10-31 17:38 | NUR ---
To ER bed 10, Been Having diarrhea xcouple days. Weak/feels dehydrated called PMD Was told to come in", aaox3, breathing even and non labored, connected to monitor, awaiting md orders
[2021-10-31] MEDS ORDERED: IV NS 0.9% 500 ML BAG IV ONE (18:00)
--- NOTE | 2021-10-31 18:46 | NUR ---
URINE COLLECTED AND SENT TO LAB
[2021-10-31 19:06] LABS: ALANINE AMINOTRANSFERASE 22 U/L (12-78); ALBUMIN 2.6 g/dL (3.4-5.0); ALKALINE PHOSPHATASE 129 U/L (46-116); ASPARTATE AMINOTRANSFERASE 23 U/L (15-37); BILIRUBIN,DIRECT 0.2 mg/dL (0.0-0.2); BILIRUBIN,TOTAL 0.6 mg/dL (0.2-1.0); CALCIUM, SERUM 7.8 mg/dL (8.5-10.1); CARBON DIOXIDE 22 mmol/L (21-32); CHLORIDE 105 mmol/L (98-107); CREATININE 3.4 mg/dL (0.6-1.3); GLUCOSE 94 mg/dL (74-106); LIPASE 48 U/L (73-393); POTASSIUM 4.1 mmol/L (3.5-5.1); SODIUM SERUM 139 mmol/L (136-145); TOTAL PROTEIN, SERUM 6.7 g/dL (6.4-8.2); UREA NITROGEN, BLOOD 58 mg/dL (7-18)
--- NOTE | 2021-10-31 19:27 | NUR ---
COVID SWAB DONE AND SENT TO LAB
[2021-10-31 19:31] LABS: BILIRUBIN,URINE NEGATIVE (NEGATIVE); COLOR,URINE YELLOW (YELLOW); LEUKOCYTE ESTERASE ,URINE NEGATIVE (NEGATIVE); NITRITE, URINE NEGATIVE (NEGATIVE); PROTEIN,URINE TRACE mg/dl (NEGATIVE); UGLUCOSE NEGATIVE (NEGATIVE); UROBILINOGEN,URINE 0.2 EU/dL (0.2)
[2021-10-31 20:16] LABS: BACTERIA,URINE None seen /HPF (None Seen); RBC,URINE 0-2 /HPF (0-2); WBC,URINE 0-2 /HPF (0-3)
[2021-10-31 20:23] LABS: BASOPHILS # (AUTO) 0.1 K/uL (0.0-0.2); BASOPHILS % (AUTO) 0.7 % (0.0-2.0); EOSINOPHILS % (AUTO) 14.9 % (0.0-6.0); HEMATOCRIT 30 % (33-45); HEMOGLOBIN 9.9 g/dL (11.5-14.8); LYMPHOCYTES # (AUTO) 1.6 K/uL (0.8-4.8); LYMPHOCYTES % (AUTO) 12.1 % (20.0-44.0); MEAN CORPUSCULAR HGB CONC 33 g/dl (31.0-36.0); MEAN CORPUSCULAR VOLUME 88 fL (82-100); MONOCYTES # (AUTO) 1.2 K/uL (0.1-1.30); MONOCYTES % (AUTO) 9.4 % (2.0-12.0); NEUTROPHILS # (AUTO) 8.3 K/uL (1.8-8.9); NEUTROPHILS % (AUTO) 62.9 % (43.0-81.0); PLATELET COUNT (AUTO) 271 K/uL (150-450); RED BLOOD CELL COUNT(AUTO) 3.45 MIL/uL (4.0-5.2); WHITE BLOOD COUNT (AUTO) 13.1 K/uL (4.3-11.0)
--- NOTE | 2021-10-31 20:41 | NUR ---
CALLED LAB FOR COVID TEST RESULTS
--- NOTE | 2021-10-31 20:55 | NUR ---
MRSA SWAB COLLECTED AND SENT TO LAB. PATIENT'S BELONGINGS LIST DONE.
--- NOTE | 2021-10-31 22:14 | NUR ---
REPORT GIVEN TO TREE FU
--- NOTE | 2021-10-31 22:25 | NUR ---
RN NOTES RECEIVED PATIENT FOR ER WITH DX. OF COBY,. A/OX4, SR ON TELE MONITOR,HR-84, DENIES PAIN, NO SOB, SAFETY MEASURES APPLIED , SKIN ASSESSMENT DONE, CALL LIGHT WITHIN REACH, SIDERAILSUPX2, WILL CONTINUE TO MONITOR
--- NOTE | 2021-10-31 22:25 | NUR ---
PT TRANSFERRED UNDER ACLS
[2021-10-31 22:30] VITALS: BP 102/56
[2021-10-31] MEDS ORDERED: Z GUARD REMEDY 4 OZ OINT TP PRN (23:00)
[2021-10-31] MEDS ORDERED: IV 1/2NS 1000 ML 1,000 ML IV PRN (23:00)
[2021-10-31] MEDS ORDERED: HYDROCODONE/APAP 5/325MG TABLET PO PRN (23:00)
[2021-10-31] MEDS ORDERED: ACETAMINOPHEN 325 MG TABLET PO PRN (23:00)
[2021-10-31] MEDS ORDERED: ONDANSETRON HCL/PF 4 MG/2 ML VIAL IVP PRN (23:00)
[2021-11-01] MEDS ORDERED: LORAZEPAM 0.5 MG TABLET PO PRN
[2021-11-01] MEDS ORDERED: LORAZEPAM 0.5 MG TABLET PO SCH
[2021-11-01] MEDS ORDERED: ZOLPIDEM TARTRATE 10 MG TABLET PO PRN
--- NOTE | 2021-11-01 01:08 | NUR ---
RN NOTES SPOKE TO PATIENT'S CAREGIVER AND INFORMED ME THAT PATIENT IS NOT TAKING ATENOLOL ANYMORE, SHE'S TAKING HYDRALAZINE 100MG PO PRN FOR SBP>14O, SPOKE TO CONCHA CABRERA AND ORDERED TO D/C ATENOLOL BUT DID NOT ORDER THE HYDRALAZINE, ORDER NOTED AND CARRIED OUT
[2021-11-01 04:00] VITALS: BP 102/52
--- NOTE | 2021-11-01 06:25 | NUR ---
RN NOTES AWAKE, MORNING CARE RENDERED, DENIES PAIN, NO SOB, CALL LIGHT WITHIN REACH, SIDERAILSUPX2, PT. NEEDS ATTENDED
[2021-11-01 06:30] LABS: BASOPHILS # (AUTO) 0.1 K/uL (0.0-0.2); BASOPHILS % (AUTO) 0.8 % (0.0-2.0); EOSINOPHILS % (AUTO) 16.1 % (0.0-6.0); HEMATOCRIT 29 % (33-45); HEMOGLOBIN 9.5 g/dL (11.5-14.8); LYMPHOCYTES # (AUTO) 1.8 K/uL (0.8-4.8); LYMPHOCYTES % (AUTO) 13.6 % (20.0-44.0); MEAN CORPUSCULAR HGB CONC 32 g/dl (31.0-36.0); MEAN CORPUSCULAR VOLUME 89 fL (82-100); MONOCYTES # (AUTO) 1.2 K/uL (0.1-1.30); MONOCYTES % (AUTO) 8.6 % (2.0-12.0); NEUTROPHILS # (AUTO) 8.3 K/uL (1.8-8.9); NEUTROPHILS % (AUTO) 60.9 % (43.0-81.0); PLATELET COUNT (AUTO) 242 K/uL (150-450); RED BLOOD CELL COUNT(AUTO) 3.29 MIL/uL (4.0-5.2); WHITE BLOOD COUNT (AUTO) 13.6 K/uL (4.3-11.0)
[2021-11-01 06:46] LABS: CALCIUM, SERUM 7.9 mg/dL (8.5-10.1); CARBON DIOXIDE 21 mmol/L (21-32); CHLORIDE 108 mmol/L (98-107); CREATININE 3.1 mg/dL (0.6-1.3); GLUCOSE 99 mg/dL (74-106); MAGNESIUM 1.4 mg/dL (1.8-2.4); PHOSPHORUS 4.7 mg/dL (2.5-4.9); POTASSIUM 4.1 mmol/L (3.5-5.1); SODIUM SERUM 140 mmol/L (136-145); UREA NITROGEN, BLOOD 56 mg/dL (7-18)
--- NOTE | 2021-11-01 06:47 | NUR ---
RN NOTES PATIENT REFUSED TO HAVE HER HOME MEDICATION TO BE SEND TO PHARMACY, PATIENT STATED HER CAREGIVER IS COMING TODY AND SHE WILL SEND IT AT HOME
[2021-11-01 06:58] LABS: CHOLESTEROL 80 mg/dL (<200); HDL CHOLESTEROL 26 mg/dL (40-60); LDL 42 mg/dL (0-99); THYROID STIMULATING HORMONE 0.933 uIU/mL (0.358-3.74); TRIGLYCERIDES 82 mg/dL (30-150)
[2021-11-01 07:12] LABS: IRON, SERUM 40 ug/dl (50-175); TOTAL IRON BINDING CAPACITY 99 ug/dl (250-450)
--- NOTE | 2021-11-01 07:45 | NUR ---
RN NOTES IN BED RESTING, AWAKE AND VERBALLY RESPONSIVE. A/O X4; VERBALIZES DESIRE TO GO HOME. EXPLAINED THAT PATIENT NEEDS TO BE CLEARED BY MD FOR DISCHARGE. PER PATIENT, SHE STATES THAT SHE WILL JUST WALK OUT EVEN IF SHE IS NOT CLEARED BY MD IF IT TAKES THE WHOLE DAY. VERBALIZED THAT BM IS MORE FORMED COMPARED TO PREVIOUS DAYS. NO COMPLAINT OF PAIN, N/V, DISCOMFORT. SAFETY MEASURES IN PLACE.
[2021-11-01] MEDS: LEVOTHYROXINE SODIUM 50 MCG TABLET PO SCH (07:57)
[2021-11-01] MEDS: PANTOPRAZOLE 40 MG TABLET.DR PO SCH (07:58)
[2021-11-01] MEDS: ALLOPURINOL 100 MG TABLET PO SCH (08:02)
[2021-11-01] MEDS: HEPARIN SODIUM, PORCINE 5000 UNITS/1 ML VIAL SQ SCH ×2 (08:03→20:47)
[2021-11-01 08:16] VITALS: BP 102/55
[2021-11-01] MEDS ORDERED: ATENOLOL 50 MG TABLET PO SCH (09:00)
--- NOTE | 2021-11-01 09:12 | NUR ---
RN NOTES ASSISTED PATIENT TO THE BATHROOM W/ FWW. NO COMPLAINT OF DIARRHEA.
--- NOTE | 2021-11-01 11:43 | NUR ---
RN NOTES PATIENT SEEN BY DR. COON AT BEDSIDE, MADE AWARE OF PLAN OF CARE. PATIENT VERBALIZED THAT SHE DOES NOT WANT TO STAY AT THE HOSPITAL, INFORMED BY MD THAT SHE HAS THE OPTION TO LEAVE AMA. CAREGIVER AT BEDSIDE AND STATED THAT PATIENT'S SON WILL BE VISITING AND PATIENT MAY NOT LEAVE AMA.
[2021-11-01 12:00] VITALS: BP 105/46
--- NOTE | 2021-11-01 14:41 | NUR ---
RN NOTES STOOL SAMPLE COLLECTED; STOOL IS FORMED. NO DIARRHEA NOTED. PER CHARGE NURSE, UNABLE TO SEND SAMPLE FOR C. DIFF TEST BECAUSE SPECIMEN DOES NOT MEET CRITERIA.
[2021-11-01 15:51] VITALS: BP 112/54
--- NOTE | 2021-11-01 18:11 | NUR ---
RN NOTES CAREGIVER AT BEDSIDE ASSISTING PATIENT TO BATHROOM. IVF CONTINUOUS. NO DIARRHEA AT THIS TIME. PATIENT ABLE TO TOLERATE MEALS AND FLUIDS BY MOUTH. SAFETY MEASURES MAINTAINED.
--- NOTE | 2021-11-01 19:10 | NUR ---
TELE/RN OPENING NOTE RECEIVED PATIENT RESTING IN BED. AWAKE, ALERT AND ORIENTED X 4. ABLE TO MAKE NEEDS KNOWN. DENIES PAIN AT THIS TIME. CONTINUES ON ROOM AIR WITH NO S/SX OF RESPIRATORY DISTRESS NOTED. IV ACCESS TO LEFT AC #20G AND RIGHT WRIST #20G BOTH INTACT AND PATENT. CONTINUES ON IVF 1/2 NS @ 75ML/HR. CONTINUES ON MECHANICAL SOFT DIET WITH NO S/SX OF ASPIRATION NOTED. PATIENT CONTINUING TO REFUSE TELE MONITOR STATING "I DON'T NEED THAT!". MD AWARE. STOOL SPECIMEN FOR C-DIFF CURRENTLY PENDING. CALL LIGHT WITHIN REACH. CAREGIVER AT BEDSIDE. ASPIRATION, FALL AND SAFETY PRECAUTIONS MAINTAINED. ALL NEEDS ATTENDED TO AT THIS TIME.
--- NOTE | 2021-11-01 19:15 | NUR ---
RN NOTES ENDORSED TO DIRECTOR OF COMPLIANCE RN FOR ANJANA.
[2021-11-01 20:00] VITALS: BP 113/57
--- NOTE | 2021-11-01 20:00 | NUR ---
TELE/RN NOTE RIGHT WRIST IV SITE INFILTRATED. IV REMOVED WITH TIP INTACT. PRESSURE DRESSING APPLIED. PATIENT TOLERATED WELL. IV ACCESS TO LEFT AC #20G INTACT AND PATENT. IVF CONNECTED AND INFUSING @ 75ML/HR PER MD ORDER.
--- NOTE | 2021-11-01 20:55 | NUR ---
TELE/RN NOTE PATIENT REFUSING 2100 MEDICATIONS AT THIS TIME. STATES SHE WANTS TO LEAVE AND GO HOME IN AM. DOES NOT WANT ANYMORE MEDICATIONS. EDUCATED ON RISKS/BENEFITS OF MEDICATION WITH PATIENT CONTINUING TO REFUSE. MD AWARE OF REFUSALS. CONTINUES ON IVF 06/06 NS @ 75ML/HR.
[2021-11-02] VITALS: BP 99/57
--- NOTE | 2021-11-02 06:10 | NUR ---
TELE/RN CLOSING NOTE PATIENT CURRENTLY RESTING IN BED. AWAKE, ALERT AND ORIENTED X 2-3. ABLE TO MAKE NEEDS KNOWN. DENIES PAIN AT THIS TIME. CONTINUES ON ROOM AIR WITH NO S/SX OF RESPIRATORY DISTRESS NOTED. IV ACCESS TO LEFT WRIST #24G INTACT AND PATENT. CONTINUES ON IVF 1/2 NS @ 75ML/HR. CONTINUES ON MECHANICAL SOFT DIET WITH NO S/SX OF ASPIRATION NOTED. PATIENT CONTINUING TO REFUSE TELE MONITOR. MD AWARE. STOOL SPECIMEN FOR C-DIFF CURRENTLY PENDING. CALL LIGHT WITHIN REACH. CAREGIVER AT BEDSIDE. ASPIRATION, FALL AND SAFETY PRECAUTIONS MAINTAINED. WILL ENDORSE PLAN OF CARE TO ONCOMING SHIFT RN.
[2021-11-02 06:20] LABS: BASOPHILS % (AUTO) 0.4 % (0.0-2.0); EOSINOPHILS % (AUTO) 14.6 % (0.0-6.0); HEMATOCRIT 29 % (33-45); HEMOGLOBIN 9.5 g/dL (11.5-14.8); LYMPHOCYTES # (AUTO) 1.8 K/uL (0.8-4.8); LYMPHOCYTES % (AUTO) 13.4 % (20.0-44.0); MEAN CORPUSCULAR HGB CONC 33 g/dl (31.0-36.0); MEAN CORPUSCULAR VOLUME 88 fL (82-100); MONOCYTES # (AUTO) 1.3 K/uL (0.1-1.30); MONOCYTES % (AUTO) 9.5 % (2.0-12.0); NEUTROPHILS # (AUTO) 8.3 K/uL (1.8-8.9); NEUTROPHILS % (AUTO) 62.1 % (43.0-81.0); PLATELET COUNT (AUTO) 247 K/uL (150-450); RED BLOOD CELL COUNT(AUTO) 3.26 MIL/uL (4.0-5.2); WHITE BLOOD COUNT (AUTO) 13.4 K/uL (4.3-11.0)
[2021-11-02 06:22] LABS: CALCIUM, SERUM 8.1 mg/dL (8.5-10.1); CARBON DIOXIDE 22 mmol/L (21-32); CHLORIDE 107 mmol/L (98-107); CREATININE 2.7 mg/dL (0.6-1.3); GLUCOSE 94 mg/dL (74-106); MAGNESIUM 1.3 mg/dL (1.8-2.4); PHOSPHORUS 3.8 mg/dL (2.5-4.9); POTASSIUM 4.1 mmol/L (3.5-5.1); SODIUM SERUM 140 mmol/L (136-145); UREA NITROGEN, BLOOD 48 mg/dL (7-18)
--- NOTE | 2021-11-02 07:26 | NUR ---
RN NOTES IN BED RESTING, ABLE TO BE AWAKENED. A/O X4; VERBALIZES DESIRE TO GO HOME AGAIN TODAY. HAD BM X2 LAST NIGHT, FORMED PER REPORT. NO COMPLAINT OF PAIN, N/V, DISCOMFORT. SAFETY MEASURES IN PLACE.
[2021-11-02 08:00] VITALS: BP 111/59
[2021-11-02] MEDS: PANTOPRAZOLE 40 MG TABLET.DR PO SCH (08:09)
[2021-11-02] MEDS: LEVOTHYROXINE SODIUM 50 MCG TABLET PO SCH (08:09)
[2021-11-02] MEDS: ALLOPURINOL 100 MG TABLET PO SCH (08:09)
[2021-11-02] MEDS: HEPARIN SODIUM, PORCINE 5000 UNITS/1 ML VIAL SQ SCH (08:11)
--- NOTE | 2021-11-02 09:02 | NUR ---
RN NOTES PATIENT SEEN BY DR. FRANCO AT BEDSIDE; PATIENT VERBALIZED DESIRE TO GO HOME AND DR. FRANCO AWARE.
--- NOTE | 2021-11-02 09:48 | NUR ---
RN NOTES PATIENT W/ NO APPARENT WOUNDS/OPEN SKIN NOTED. ASKED IF IT'S OKAY FOR PHOTO OF SKIN ISSUE TO BE TAKEN AGAIN BUT PATIENT REFUSED AT THIS TIME.
--- NOTE | 2021-11-02 11:32 | NUR ---
RN NOTES PER APRIL EARL FOR PATIENT TO GET OTC MED FOR DIARRHEA UPON D/C.
[2021-11-02 12:00] VITALS: BP 114/50
[2021-11-02 15:47] VITALS: BP 108/61
--- NOTE | 2021-11-02 17:02 | NUR ---
RN NOTES DISCHARGED TO HOME TODAY. DISCHARGE INSTRUCTION AND EDUCATION PROVIDED TO PATIENT AND CAREGIVER AT BEDSIDE; DISCHARGE FORM AND BELONGINGS LIST FORM SIGNED BY PATIENT AND ALL BELONGINGS ACCOUNTED FOR. IV LINE REMOVED. PHOTO OF SKIN ISSUES REFUSED BY PATIENT TO BE TAKEN. PATIENT ACCOMPANIED BY ME VIA WHEELCHAIR TO THE LOBBY AND PICKED UP BY JACKIE, CAREGIVER, VIA PRIVATE CAR. CHARGE NURSE AND MD AWARE OF DISCHARGE.
== END 2021-11-02 16:45 | disposition home or self-care (01) | DRG 391 ==
LOC: ER 17:01 → TELE 22:06
PROVIDERS: ADMIT Nurse Practitioner Family; ATTEND Nurse Practitioner Acute Care
DX: A08.4 Viral intestinal infection, unspecified (principal); N17.0 Acute kidney failure with tubular necrosis; E44.0 Moderate protein-calorie malnutrition; N18.9 Chronic kidney disease, unspecified; I12.9 Hypertensive chronic kidney disease with stage 1 through stage 4 chronic kidney disease, or unspecified chronic kidney disease; Z20.822 Contact with and (suspected) exposure to COVID-19; E03.9 Hypothyroidism, unspecified; D64.9 Anemia, unspecified; E78.5 Hyperlipidemia, unspecified; M10.9 Gout, unspecified; Z79.899 Other long term (current) drug therapy; Z86.73 Personal history of transient ischemic attack (TIA), and cerebral infarction without residual deficits; F41.9 Anxiety disorder, unspecified; F32.A Depression, unspecified; G47.9 Sleep disorder, unspecified; Z96.642 Presence of left artificial hip joint; Z90.710 Acquired absence of both cervix and uterus; Z90.49 Acquired absence of other specified parts of digestive tract; Z98.890 Other specified postprocedural states; Z87.891 Personal history of nicotine dependence; F43.9 Reaction to severe stress, unspecified; E88.09 Other disorders of plasma-protein metabolism, not elsewhere classified; D72.829 Elevated white blood cell count, unspecified; E83.42 Hypomagnesemia
CPT/HCPCS: 36415; 71045-TC; 80048-TC; 80061-TC; 80076-TC; 81001; 83540-TC; 83690-TC; 83735-TC; 84100-TC; 84443-TC; 85025-TC; 87081-TC; 97116-TC; 97530-TC; C9803; G0378; J1644; J3490; J7040

== ENCOUNTER 2021-12-10 10:27 | Outpatient (CLI) | payer MEDICARE, BC | END 2021-12-10 23:59 | disposition home or self-care (01) | LOC: RAD 10:27 | PROVIDERS: ATTEND Internal Medicine Hematology & Oncology | DX: D47.2 Monoclonal gammopathy (principal); Z96.642 Presence of left artificial hip joint | CPT/HCPCS: 77075-TC ==

== ENCOUNTER 2024-04-19 06:19 | Inpatient (IN) | payer MEDICARE, BC, OTHER ==
[2024-04-19] VITALS (8 sets, daily range): BP systolic 115–122; BP diastolic 55–75; TEMP 97.8–98.6; O2SAT 93–99
[~2024-04-19] VITALS: Ht 157.5 cm; Wt 46.7 kg
[2024-04-19] MEDS ORDERED: CEFTRIAXONE 1GM BAG (ER ONLY) 50 ML IV ONE (06:57)
[2024-04-19] MEDS ORDERED: AZITHROMYCIN 500 MG VIAL ONE (06:58)
[2024-04-19] MEDS: IV NS 0.9% 1,000 ML BAG IV ONE (07:04)
[2024-04-19] MEDS: CEFTRIAXONE 1GM BAG (ER ONLY) 50 ML IV ONE (07:04)
[2024-04-19 07:09] LABS: BASOPHILS # (AUTO) 0.1 K/uL (0.0-0.2); BASOPHILS % (AUTO) 0.7 % (0.0-2.0); EOSINOPHILS # (AUTO) 1.5 K/uL (0.0-0.7); EOSINOPHILS % (AUTO) 14.1 % (0.0-6.0); HEMATOCRIT 35 % (33-45); HEMOGLOBIN 11.9 g/dL (11.5-14.8); LYMPHOCYTES % (AUTO) 18.6 % (20.0-44.0); MEAN CORPUSCULAR HEMOGLOBIN 30 PG (26.0-33.0); MEAN CORPUSCULAR HGB CONC 34 g/dl (31.0-36.0); MEAN CORPUSCULAR VOLUME 88 fL (82-100); MONOCYTES # (AUTO) 1.3 K/uL (0.1-1.30); MONOCYTES % (AUTO) 11.9 % (2.0-12.0); NEUTROPHILS # (AUTO) 5.8 K/uL (1.8-8.9); NEUTROPHILS % (AUTO) 54.7 % (43.0-81.0); PLATELET COUNT (AUTO) 249 K/uL (150-450); RED BLOOD CELL COUNT(AUTO) 3.97 MIL/uL (4.0-5.2); RED CELL DISTRIBUTION WIDTH 13.5 % (11.5-15.0); WHITE BLOOD COUNT (AUTO) 10.7 K/uL (4.3-11.0)
[2024-04-19] MEDS: AZITHROMYCIN 500 MG in IV D5W 250 ML IV ONE (07:09)
[2024-04-19 07:13] LABS: CALCIUM, SERUM 8.6 mg/dL (8.5-10.1); CARBON DIOXIDE 31 mmol/L (21-32); CHLORIDE 102 mmol/L (98-107); CREATININE 3.2 mg/dL (0.6-1.3); GLUCOSE 112 mg/dL (74-106); POTASSIUM 4.7 mmol/L (3.5-5.1); SODIUM SERUM 142 mmol/L (136-145); UREA NITROGEN, BLOOD 38 mg/dL (7-18)
[2024-04-19 07:17] LABS: ABG BASE EXCESS 1.9 mmol/L (-2.0-3.0); ABG OXYGEN SATURATION 86.5 % (94.0-98.0); ABG PCO2 38.8 mmHg (32.0-45.0); ABG PH 7.444 (7.350-7.450); ABG TOTAL HEMOGLOBIN 12.6 G/dL (12.0-16.0); COHb 0.3 % (0.5-1.5); MetHb 0.2 % (0.0-1.5); O2Hb 86.1 % (94.0-97.0); SITE, ABG RIGHT RADIAL
[2024-04-19 07:19] LABS: INR 1.03 (0.91-1.10); PARTIAL THROMBOPLASTIN TIME 26.3 SEC (24.3-34.3); PROTHROMBIN TIME 10.9 SECS (9.2-11.1)
[2024-04-19 07:21] LABS: LACTIC ACID 1.8 mmol/L (0.4-2.0)
[2024-04-19 07:28] LABS: ALANINE AMINOTRANSFERASE 15 U/L (12-78); ALBUMIN 3.5 g/dL (3.4-5.0); ALKALINE PHOSPHATASE 94 U/L (46-116); ASPARTATE AMINOTRANSFERASE 18 U/L (15-37); BILIRUBIN,DIRECT 0.2 mg/dL (0.0-0.2); BILIRUBIN,TOTAL 0.9 mg/dL (0.2-1.0); THYROID STIMULATING HORMONE 0.23 uIU/mL (0.358-3.74); TOTAL PROTEIN, SERUM 7.4 g/dL (6.4-8.2)
[2024-04-19 07:53] LABS: APPEARANCE,URINE CLEAR (CLEAR); BILIRUBIN,URINE NEGATIVE (NEGATIVE); BLOOD, URINE NEGATIVE Ery/uL (NEGATIVE); COLOR,URINE YELLOW (YELLOW); KETONES,URINE NEGATIVE (NEGATIVE); LEUKOCYTE ESTERASE ,URINE TRACE (NEGATIVE); NITRITE, URINE NEGATIVE (NEGATIVE); PROTEIN,URINE 1+ mg/dl (NEGATIVE); UGLUCOSE NEGATIVE (NEGATIVE); UROBILINOGEN,URINE 0.2 EU/dL (0.2)
[2024-04-19 08:04] LABS: ADD URINE CULTURE YES; BACTERIA,URINE Few /HPF (None Seen); RBC,URINE 0-2 /HPF (0-2); SQUAMOUS EPITHELIAL CELL,UR Few /HPF (None Seen)
[2024-04-19] MEDS ORDERED: MAG HYDROX/AL HYDROX/SIMETH 30 ML UDC PO PRN (09:00)
[2024-04-19] MEDS ORDERED: MAGNESIUM HYDROXIDE 30 ML UDC PO PRN (09:00)
[2024-04-19] MEDS ORDERED: ACETAMINOPHEN 325 MG TABLET PO PRN (09:00)
[2024-04-19] MEDS ORDERED: Z GUARD REMEDY 4 OZ OINT TP PRN (09:00)
[2024-04-19] MEDS ORDERED: ONDANSETRON HCL/PF 4 MG/2 ML VIAL IVP PRN (09:00)
[2024-04-19] MEDS: APIXABAN 2.5 MG TABLET PO SCH (11:57)
[2024-04-19] MEDS: methylPREDNISolone SOD SUCC 40 MG/ML VIAL IV SCH (12:53)
[2024-04-19] MEDS: IPRATROPIUM NEB FS 0.5 MG/2.5 ML AMPUL.NEB NEB SCH (13:41)
[2024-04-19] MEDS: ALBUTEROL FS 2.5 MG/3 ML VIAL.NEB NEB SCH (13:41)
[2024-04-19] MEDS: IV NS 0.9% 1,000 ML IV PRN (19:19)
[2024-04-19] MEDS: ZOLPIDEM TARTRATE 5 MG TABLET PO PRN (22:40)
[2024-04-20] VITALS (13 sets, daily range): BP systolic 100–120; BP diastolic 50–84; TEMP 97.6–98.2; O2SAT 93–98
[2024-04-20 07:20] LABS: BASOPHILS % (AUTO) 0.1 % (0.0-2.0); HEMATOCRIT 31 % (33-45); HEMOGLOBIN 10.3 g/dL (11.5-14.8); LYMPHOCYTES # (AUTO) 0.5 K/uL (0.8-4.8); LYMPHOCYTES % (AUTO) 6.5 % (20.0-44.0); MEAN CORPUSCULAR HEMOGLOBIN 30 PG (26.0-33.0); MEAN CORPUSCULAR HGB CONC 34 g/dl (31.0-36.0); MEAN CORPUSCULAR VOLUME 88 fL (82-100); MONOCYTES # (AUTO) 0.1 K/uL (0.1-1.30); MONOCYTES % (AUTO) 1.6 % (2.0-12.0); NEUTROPHILS # (AUTO) 6.7 K/uL (1.8-8.9); NEUTROPHILS % (AUTO) 91.8 % (43.0-81.0); PLATELET COUNT (AUTO) 205 K/uL (150-450); RED BLOOD CELL COUNT(AUTO) 3.48 MIL/uL (4.0-5.2); WHITE BLOOD COUNT (AUTO) 7.3 K/uL (4.3-11.0)
[2024-04-20 07:34] LABS: CALCIUM, SERUM 8.5 mg/dL (8.5-10.1); CARBON DIOXIDE 23 mmol/L (21-32); CHLORIDE 109 mmol/L (98-107); CREATININE 2.7 mg/dL (0.6-1.3); GLUCOSE 161 mg/dL (74-106); MAGNESIUM 1.9 mg/dL (1.8-2.4); PHOSPHORUS 3.6 mg/dL (2.5-4.9); POTASSIUM 3.9 mmol/L (3.5-5.1); SODIUM SERUM 144 mmol/L (136-145); UREA NITROGEN, BLOOD 34 mg/dL (7-18)
[2024-04-20] MEDS: NICOTINE PATCH (14MG) 14 MG PATCH.TD24 TD SCH (08:45)
[2024-04-20] MEDS ORDERED: LEVOTHYROXINE SODIUM 25 MCG TABLET PO SCH (09:00)
[2024-04-20] MEDS ORDERED: LEVOTHYROXINE SODIUM 50 MCG TABLET PO SCH (09:00)
[2024-04-20] MEDS: AZITHROMYCIN 500 MG in IV D5W 250 ML IV SCH (09:08)
[2024-04-20] MEDS: CEFTRIAXONE 1 G in IV D5W 50 ML IV SCH (09:08)
[2024-04-20] MEDS: ALBUTEROL HALF STRENGTH 1.25 MG/3 ML VIAL.NEB NEB SCH (11:00)
[2024-04-20] MEDS: LORAZEPAM 0.5 MG TABLET PO PRN (12:57)
[2024-04-20] MEDS: ENSURE ENLIVE CHOC 237 ML CAN PO SCH (16:14)
[2024-04-20 21:32] LABS: CREATININE, URINE 111.1 MG/DL (30.0-125.0); URINE TOTAL PROTEIN 54.7 mg/dL (0-11.9)
[2024-04-21] VITALS (13 sets, daily range): BP systolic 108–124; BP diastolic 53–66; TEMP 97.6–98.6; O2SAT 94–100
[2024-04-21 07:15] LABS: BASOPHILS % (AUTO) 0.1 % (0.0-2.0); HEMATOCRIT 32 % (33-45); HEMOGLOBIN 10.5 g/dL (11.5-14.8); LYMPHOCYTES # (AUTO) 0.7 K/uL (0.8-4.8); LYMPHOCYTES % (AUTO) 3.9 % (20.0-44.0); MEAN CORPUSCULAR HEMOGLOBIN 29 PG (26.0-33.0); MEAN CORPUSCULAR HGB CONC 33 g/dl (31.0-36.0); MEAN CORPUSCULAR VOLUME 89 fL (82-100); MONOCYTES # (AUTO) 0.6 K/uL (0.1-1.30); PLATELET COUNT (AUTO) 228 K/uL (150-450); RED CELL DISTRIBUTION WIDTH 13.3 % (11.5-15.0); WHITE BLOOD COUNT (AUTO) 19.3 K/uL (4.3-11.0)
[2024-04-21 07:20] LABS: CALCIUM, SERUM 8.6 mg/dL (8.5-10.1); CARBON DIOXIDE 22 mmol/L (21-32); CHLORIDE 110 mmol/L (98-107); CREATININE 2.6 mg/dL (0.6-1.3); GLUCOSE 136 mg/dL (74-106); SODIUM SERUM 144 mmol/L (136-145); UREA NITROGEN, BLOOD 34 mg/dL (7-18)
[2024-04-21 09:11] LABS: T4 (THYROXINE) 7.7 ug/dL (4.7-13.3)
[2024-04-21] MEDS: methylPREDNISolone SOD SUCC 40 MG/ML VIAL IV SCH (11:18)
[2024-04-21] MEDS: IV NS 0.9% 1,000 ML IV PRN (15:58)
[2024-04-22] VITALS (10 sets, daily range): BP systolic 125–154; BP diastolic 68–74; TEMP 97.7–97.9; O2SAT 93–99
[2024-04-22] MEDS: LORAZEPAM 0.5 MG TABLET PO PRN (05:10)
[2024-04-22 07:15] LABS: BASOPHILS % (AUTO) 0.2 % (0.0-2.0); HEMATOCRIT 32 % (33-45); HEMOGLOBIN 10.3 g/dL (11.5-14.8); LYMPHOCYTES # (AUTO) 1.2 K/uL (0.8-4.8); MEAN CORPUSCULAR HEMOGLOBIN 29 PG (26.0-33.0); MEAN CORPUSCULAR HGB CONC 32 g/dl (31.0-36.0); MEAN CORPUSCULAR VOLUME 89 fL (82-100); MONOCYTES # (AUTO) 1.2 K/uL (0.1-1.30); MONOCYTES % (AUTO) 7.3 % (2.0-12.0); NEUTROPHILS # (AUTO) 14.2 K/uL (1.8-8.9); NEUTROPHILS % (AUTO) 85.5 % (43.0-81.0); PLATELET COUNT (AUTO) 234 K/uL (150-450); RED BLOOD CELL COUNT(AUTO) 3.58 MIL/uL (4.0-5.2); RED CELL DISTRIBUTION WIDTH 13.5 % (11.5-15.0); WHITE BLOOD COUNT (AUTO) 16.6 K/uL (4.3-11.0)
[2024-04-22 07:55] LABS: CALCIUM, SERUM 8.4 mg/dL (8.5-10.1); CARBON DIOXIDE 22 mmol/L (21-32); CHLORIDE 113 mmol/L (98-107); CREATININE 2.3 mg/dL (0.6-1.3); GLUCOSE 94 mg/dL (74-106); POTASSIUM 3.9 mmol/L (3.5-5.1); SODIUM SERUM 145 mmol/L (136-145); UREA NITROGEN, BLOOD 36 mg/dL (7-18)
[2024-04-22 09:41] LABS: ABG BASE EXCESS -4.7 mmol/L (-2.0-3.0); ABG OXYGEN SATURATION 89.8 % (94.0-98.0); ABG PCO2 28.2 mmHg (32.0-45.0); ABG PH 7.433 (7.350-7.450); ABG PO2 57.3 mmHg (83.0-108.0); ABG TOTAL HEMOGLOBIN 11.3 G/dL (12.0-16.0); COHb 0.3 % (0.5-1.5); MetHb 0.1 % (0.0-1.5); O2Hb 89.4 % (94.0-97.0)
[2024-04-22] MEDS: AZITHROMYCIN 250 MG TABLET PO SCH (10:01)
[2024-04-22] MEDS ORDERED: NICO-676 TD (10:58)
[2024-04-22] MEDS ORDERED: FLUT1BLS6 IH (10:58)
[2024-04-22] MEDS ORDERED: LEVO25TA7 PO (10:58)
[2024-04-22] MEDS ORDERED: NEBU-171 MC (10:58)
[2024-04-22] MEDS ORDERED: NEBU1KIT MC (10:58)
[2024-04-22] MEDS ORDERED: ALBU1.25 NEB (10:58)
[2024-04-22] MEDS ORDERED: IPRA0.2S9 NEB (10:58)
[2024-04-22] MEDS ORDERED: PRED20TA PO (10:58)
[2024-04-23] MEDS ORDERED: predniSONE 20 MG TABLET PO SCH (09:00)
== END 2024-04-22 19:00 | disposition home health service (06) | DRG 190 ==
LOC: ER 06:22 → TELE1 09:10
PROVIDERS: ADMIT Nurse Practitioner Acute Care; ATTEND Nurse Practitioner Acute Care
DX: J44.1 Chronic obstructive pulmonary disease with (acute) exacerbation (principal); J96.01 Acute respiratory failure with hypoxia; N17.0 Acute kidney failure with tubular necrosis; N18.4 Chronic kidney disease, stage 4 (severe); J40 Bronchitis, not specified as acute or chronic; I12.9 Hypertensive chronic kidney disease with stage 1 through stage 4 chronic kidney disease, or unspecified chronic kidney disease; D64.9 Anemia, unspecified; E03.9 Hypothyroidism, unspecified; E78.5 Hyperlipidemia, unspecified; Z87.01 Personal history of pneumonia (recurrent); Z20.822 Contact with and (suspected) exposure to COVID-19; J06.9 Acute upper respiratory infection, unspecified; M89.8X9 Other specified disorders of bone, unspecified site; F17.210 Nicotine dependence, cigarettes, uncomplicated; Z71.6 Tobacco abuse counseling
CPT/HCPCS: 36415; 36600; 71045-TC; 76770-TC; 80048-TC; 80076-TC; 81001; 82570-TC; 82803-TC; 83605-TC; 83735-TC; 83880; 84100-TC; 84300-TC; 84436-TC; 84443-TC; 84484-TC; 85025-TC; 85730-TC; 87040-TC; 87086-TC; 92526; 92611-TC; 93970-TC; 94760-TC; 94762-TC; 94799-TC; 97112-TC; 97116-TC; 97530-TC; A4223; G0378; J0456; J0696; J2919; J7030; J7040; J7060